=== PATIENT | female | born 1965 | race Caucasian/White ===

== ENCOUNTER → 2017-08-25 14:39 | Outpatient (CLI) | payer OTHER, SELFPAY ==
--- NOTE | 2017-08-25 | DI.MG.S_ITS ---
UNILATERAL LEFT DIGITAL DIAGNOSTIC MAMMOGRAM 3D/2D WITH ADDITIONAL VIEWS: 08/25/2017 CLINICAL: Additional evaluation requested from prior study. Comparison is made to exams dated: 07/30/2017 mammogram, 09/12/2014 mammogram, and 07/07/2013 mammogram - [facility]. The tissue of the left breast is extremely dense, which lowers the sensitivity of mammography. There are grouped coarse dystrophic heterogeneous calcifications in the left breast at 6 o'clock middle depth. This correlates with prior surgery. No other significant masses or calcifications are seen in the breast. IMPRESSION: INCOMPLETE: NEEDS ADDITIONAL IMAGING EVALUATION The grouped coarse dystrophic heterogeneous calcifications in the left breast are consistent with fat necrosis and are benign. Ultrasound of the previously described prominent bilateral axillary lymph nodes is recommended. This exam was interpreted at Station ID: [id number]. NOTE: For mammograms, a report in lay terms will be sent to the patient. Approximately 15% of breast malignancies will not be visualized mammographically. In the management of a palpable breast mass, a negative mammogram must not discourage biopsy of a clinically suspicious lesion. Electronically Signed By: Sarbjit ellington/:08/25/2017 15:48:37 letter sent: Need Ultrasound ACR BI-RADS Category 0: Incomplete 3340F
--- NOTE | 2017-08-25 | DI.US.S_ITS ---
ULTRASOUND OF RIGHT AXILLA: 08/25/2017 CLINICAL: Prominent lymph nodes. Comparison is made to exams dated: 07/30/2017 mammogram, 09/12/2014 mammogram, and 07/07/2013 mammogram - [facility]. Real-time ultrasound of the right axilla was performed on the area of interest. There are benign various size oval lymph nodes in the right axilla measuring up to 0.6 cm in short axis. No abnormal cortical thickening. These oval lymph nodes are of mixed echogenicity with fatty hilum. These correlate with mammography findings. Color flow imaging demonstrates that there is no increase in vascularity. IMPRESSION: BENIGN There is no sonographic evidence of malignancy. The various size oval lymph nodes are consistent with normal lymph nodes. A 1 year screening mammogram is recommended. This exam was interpreted at Station ID: [id number]. Electronically Signed By: Sarbjit Rice M.D. ddp/:08/25/2017 16:15:36 letter sent: Normal Exam Ultrasound BI-RADS: 2 Benign
--- NOTE | 2017-08-25 | DI.US.S_ITS ---
ULTRASOUND OF LEFT AXILLA: 08/25/2017 CLINICAL: Enlarged lymph nodes. Comparison is made to exams dated: 08/25/2017 mammogram, 07/30/2017 mammogram, and 09/12/2014 mammogram - [facility]. Color flow and real-time ultrasound of the left axilla were performed on the areas of interest. There are benign various size oval axillary nodes in the left axillary tail which measure up to 0.6 cm in short axis. These oval axillary nodes are of mixed echogenicity with fatty hilum. These correlate with mammography findings. Color flow imaging demonstrates that there is no increase in vascularity. IMPRESSION: BENIGN There is no sonographic evidence of malignancy. The various size oval subcentimeter axillary nodes are consistent with normal lymph nodes. A 1 year screening mammogram is recommended. This exam was interpreted at Station ID: [id number]. Electronically Signed By: Sarbjit Rice M.D. ddp/:08/25/2017 16:13:43 letter sent: Normal Exam Ultrasound BI-RADS: 2 Benign
== END ==
PROVIDERS: Family Provider Physician Assistant; Visit Provider Physician Assistant
DX: R92.2 Inconclusive mammogram (principal); R59.0 Localized enlarged lymph nodes
CPT/HCPCS: 76882; 77065; G0279

== ENCOUNTER → 2019-01-18 11:57 | Outpatient (CLI) | payer OTHER, SELFPAY ==
--- NOTE | 2019-01-18 12:00 | DI.US.S_ITS ---
PROCEDURE: US PELVIC COMPLETE INDICATIONS: MIRENA STRINGS LOST, VAGINAL BLEEDING TECHNIQUE: Real-time scanning was performed of the pelvic organs, with image documentation. Additional endovaginal scanning was necessary due to incomplete visualization of the adnexal and endometrial structures by transabdominal scanning. COMPARISON: None. FINDINGS: Transabdominal scanning: Limited scanning through the kidneys shows no hydronephrosis. No pathologic free abdominal or pelvic fluid. Endovaginal scanning: Uterus: Uterus is normal in size at 11.0 x 4.7 x 7.8 cm. The endometrium measures 5.1 mm in combined thickness. Intrauterine device in expected position. Ovaries: Ovaries normal in size measuring 2.5 x 1.2 x 1.2 cm on the right and 3.6 x 2.5 x 2.7 cm the left. Mildly complex cyst with wall irregularity and septation associated with the left ovary measured 2.9 x 2.3 x 2.3 cm. IMPRESSION: 1. Complex left ovarian cyst with septation and wall irregularity. Followup pelvic ultrasound recommended in 6-12 weeks to assess for temporal resolution. Dictated by: Blaine Almanzar [facility] Interpreted: Branden Walsh MD on 01/18/2019 at 14:04 Approved by: Branden Walsh M.D. on 01/18/2019 at 16:28
== END ==
PROVIDERS: Family Provider Physician Assistant; PCP Physician Assistant; Visit Provider Nurse Practitioner Family
DX: T83.32XA Displacement of intrauterine contraceptive device, initial encounter (principal); N93.9 Abnormal uterine and vaginal bleeding, unspecified; N83.292 Other ovarian cyst, left side
CPT/HCPCS: 76830; 76856

== ENCOUNTER 2019-02-16 10:00 | Emergency (ER) | payer OTHER, SELFPAY ==
[2019-02-16 10:10] VITALS: BP 129/82; PULSE 66; RESP 16; TEMP 36.8; O2SAT 97; BMI 29.8
--- NOTE | 2019-02-16 10:18 | DI.RAD.S_ITS ---
PROCEDURE: XR RIBS LT MIN 3V W CXR1V INDICATIONS: fall TECHNIQUE: 2 views of the left ribs were acquired, along with a single view chest. COMPARISON: None. FINDINGS: Surgical changes and devices: None. Bones and chest wall: No fractures or dislocations. No suspicious bony lesions. Overlying soft tissues appear unremarkable. Lungs and pleura: No pleural effusions or pneumothorax. Lungs appear clear. Mediastinum: Mediastinal contours appear normal. Heart size is normal. IMPRESSION: No displaced left rib fracture. Dictated by: Juan Miguel Lomax M.D. on 02/16/2019 at 10:48 Approved by: Juan Miguel Lomax M.D. on 02/16/2019 at 10:50
--- NOTE | 2019-02-16 10:33 | ED.GENADULT ---
HPI - General Adult General Chief complaint: Extremity Injury, Upper Stated complaint: fell yesterday. sore ribs and hard time breathing Time Seen by Provider: 02/16/19 10:16 Source: patient and family Mode of arrival: Family Vehicle Limitations: no limitations History of Present Illness HPI narrative: 53-year-old female here for evaluation of left flank/left lower rib pain. Patient states yesterday she was out walking her dog. States she found a ball impacted up in throat for dog and the dog pulled her. She states she fell and landed on her left side. Since then has had pain and some shortness of breath. Tenderness to palpation on the left lower ribs. Related Data Home Medications Medication Instructions Recorded Confirmed acetaminophen [Tylenol Extra 1,000 mg PO PRN PRN #0 06/17/17 02/03/19 Strength] ranitidine HCl 150 mg tablet 150 mg PO DAILY 05/19/18 02/03/19 Previous Rx's Medication Instructions Recorded meloxicam 15 mg tablet 15 mg PO QDAY #90 tab 06/28/18 valacyclovir 1 gram tablet 1,000 mg PO TID #60 tab 07/26/18 fluoxetine 20 mg capsule 20 mg PO DAILY #90 cap 11/29/18 hydrochlorothiazide 25 mg tablet See Rx Instructions .ROUTE 12/26/18 .COMPLEX #30 tab metoprolol succinate 25 mg 25 mg PO QDAY #90 tab 01/04/19 tablet,extended release 24 hr simvastatin 20 mg tablet 20 mg PO HS #90 tab 01/13/19 acetaminophen-codeine 1 tab PO Q4-6H PRN #10 tab 02/16/19 [Tylenol-Codeine #3] Allergies Allergy/AdvReac Type Severity Reaction Status Date / Time No Known Drug Allergies Allergy Verified 02/16/19 10:24 Review of Systems Constitutional Constitutional: Denies fever(s) Cardiovascular Cardiovascular: Denies chest pain Respiratory Respiratory: Reports pain on inspiration Gastrointestinal Gastrointestinal: Denies abdominal pain, Denies nausea and Denies vomiting Musculoskeletal Musculoskeletal: Denies back pain, Denies myalgias and Denies arthralgias Integumentary/Breasts Skin/Breast: Denies rash Neurologic Neurologic: Denies behavioral changes Psychiatric Psychiatric: Denies behavioral changes Hematologic/Lymphatic Hematologic/Lymphatic: Denies easy bleeding and Denies easy bruising Patient History Medical History Depression with anxiety (Resolved) Essential hypertension (Inactive 03/19/16) History of Graves' disease (Inactive) Hyperlipidemia (Inactive) Surgical History (Updated 08/03/17 @ 05:17 by Conversion Provider) History of lumpectomy Status post breast reduction Status post tubal ligation Family History (Updated 01/07/15 @ 00:00 by Conversion Provider) Brother Age: 58 Bipolar 1 disorder Schizophrenia Mother Age: 83 Hypertension Sister Age: 57 Bipolar 1 disorder Social History Smoking Status: Former smoker Tobacco: How many years used: 34 second hand exposure: No alcohol intake: current (rarely) substance use type: does not use alcohol intake frequency: 0-2 drinks per day Substance Use Type: does not use Exam Initial Vital Signs Initial Vital Signs: Vital Signs Temperature 98.3 F 02/16/19 10:10 Pulse Rate 66 02/16/19 10:10 Respiratory Rate 16 02/16/19 10:10 Blood Pressure 129/82 02/16/19 10:10 Pulse Oximetry 97 02/16/19 10:10 Const General: cooperative and comfortable Orientation: alert, awake and oriented x3 HENMT Head: normal to inspection and normocephalic Chest Chest: No crepitus and tenderness (Left lower chest, left flank over the ribs) Resp Effort & Inspection: normal respiratory effort Auscultation: clear to auscultation bilaterally Back/Spine/Pelvis Thoracic/Lumbar Spine: No thoracic spinal tenderness and No lumbar spinal tenderness Skin Lesions: no lesions Rashes: no rashes Neuro General: alert, awake and oriented x3 Cognition: normal cognition Speech: speech normal Extrem General: normal to inspection and capillary refill normal Psych Appearance: grossly normal and well kempt Course Orders Ordered: ED Orders 02/16/19 10:18 XR ribs LT min 3V w CXR1V Stat Vital Signs Vital signs: Vital Signs - 8 hr 02/16/19 10:10 Temperature 98.3 F Pulse Rate 66 Respiratory Rate 16 Blood Pressure 129/82 Pulse Oximetry 97 Medical Decision Making Imaging Data rib xray: Radiologist's impression: [address] [address] XRay Report Signed Patient: Eva Lee [facility]#: [id number] : 1965Acct:[id number] Age/Sex: 53 / FDate of Service: 02/16/19 Loc: ED Accession Number: [id number] Procedure: XR ribs LT min 3V w CXR1V Ordering Provider: Leonid Sneed D.O. PROCEDURE: XR RIBS LT MIN 3V W CXR1V INDICATIONS: fall TECHNIQUE: 2 views of the left ribs were acquired, along with a single view chest. COMPARISON: None. FINDINGS: Surgical changes and devices: None. Bones and chest wall: No fractures or dislocations. No suspicious bony lesions. Overlying soft tissues appear unremarkable. Lungs and pleura: No pleural effusions or pneumothorax. Lungs appear clear. Mediastinum: Mediastinal contours appear normal. Heart size is normal. IMPRESSION: No displaced left rib fracture. Dictated by: Juan Miguel Lomax M.D. on 02/16/2019 at 10:48 Approved by: Juan Miguel Lomax M.D. on 02/16/2019 at 10:50 MDM Narrative Medical decision making narrative: No displaced rib fractures seen on the x-ray. Lung on the left unremarkable. Patient is not tachypneic. Not febrile. Nontoxic appearing. I did discuss that there were no displaced rib fractures with the patient. I also discussed that there could potentially be a small fracture in the rib that we cannot see on the x-ray. We discussed return precautions to include fevers and productive cough and shortness of breath. We did discuss pain control in the importance of taking deep breaths. Patient expressed understanding and agreement with plan. Discharge Plan Departure Patient Disposition: Home Clinical Impression: Rib pain on left side Instructions: DI for Rib Fracture Activity Restrictions/Additional Instructions: Like we discussed there were no fractures noted on the x-rays. The discharge instructions you were given are for rib fractures because the information within this packet is helpful for both fractures and also bruised ribs. Take the medication as directed. Return to the emergency department for any fevers or shortness of breath. Contact her primary provider for follow-up. Prescriptions: New acetaminophen-codeine [Tylenol-Codeine #3] 300-30 mg tablet 1 tab PO Q4-6H PRN (Reason: pain) Qty: 10 RF: 0 No Action ranitidine HCl [Zantac] 150 mg tablet 150 mg PO DAILY RF: 0 acetaminophen [Tylenol Extra Strength] 500 MG tablet 1,000 mg PO PRN PRNQty: 0 RF: 0 meloxicam 15 mg tablet 15 mg PO QDAY Qty: 90 RF: 3 fluoxetine 20 mg capsule 20 mg PO DAILY Qty: 90 RF: 3 hydrochlorothiazide 25 mg tablet See Rx Instructions .ROUTE .COMPLEX Qty: 30 RF: 0 metoprolol succinate [Toprol XL] 25 mg tablet extended release 24 hr 25 mg PO QDAY Qty: 90 RF: 1 simvastatin 20 mg tablet 20 mg PO HS Qty: 90 RF: 0 valacyclovir 1 gram tablet 1,000 mg PO TID Qty: 60 RF: 3 Referrals: Mica Chang PA-C [Primary Care Provider] -
--- NOTE | 2019-02-16 11:32 | PC.NURSE ---
Pain is to left ribs
[2019-02-16 11:33] VITALS: PULSE 72; RESP 16; O2SAT 99
== END 2019-02-16 11:34 | disposition home or self-care (01) ==
PROVIDERS: Emergency Provider Emergency Medicine; Family Provider Physician Assistant; PCP Physician Assistant
DX: R07.81 Pleurodynia (principal); W01.0XXA Fall on same level from slipping, tripping and stumbling without subsequent striking against object, initial encounter; Y93.K1 Activity, walking an animal
CPT/HCPCS: 71101; 99282; 99283

== ENCOUNTER → 2019-03-19 16:11 | Outpatient (CLI) | payer OTHER, SELFPAY ==
[2019-03-19 17:07] LABS: Influenza A - CEPHEID Flu A NEGATIVE (NEGATIVE); Influenza B - CEPHEID Flu B NEGATIVE (NEGATIVE)
== END ==
PROVIDERS: Family Provider Physician Assistant; PCP Physician Assistant; Visit Provider Nurse Practitioner
DX: R68.89 Other general symptoms and signs (principal)
CPT/HCPCS: 87502

== ENCOUNTER → 2019-04-26 07:27 | Outpatient (CLI) | payer OTHER, SELFPAY ==
--- NOTE | 2019-04-26 07:29 | DI.US.S_ITS ---
PROCEDURE: US PELVIC COMPLETE INDICATIONS: COMPLEX OVARIAN CYST TECHNIQUE: Real-time scanning was performed of the pelvic organs, with image documentation. Additional endovaginal scanning was necessary due to incomplete visualization of the adnexal and endometrial structures by transabdominal scanning. COMPARISON: [facility], , US PELVIC COMPLETE, 01/18/2019, 12:12. FINDINGS: Transabdominal scanning: Limited scanning through the kidneys shows no hydronephrosis. No pathologic free abdominal or pelvic fluid. Endovaginal scanning: Uterus: Uterus is normal in size at 4.6 x 6.5 x 9.4 cm, anteverted. The endometrium measures 12 mm in combined thickness, mildly heterogeneous without identifiable mass or abnormal fluid collection. A previously present IUD from 01/18/19 is no longer visualized. Ovaries: The right ovary appears normal measuring up to 2.7 cm. The left ovary measures up to 2.5 cm and a previously present 2.9 cm maximal dimension mildly complex left ovarian cyst is resolving now measuring only 5 x 5 x 10 mm. IMPRESSION: Involuting left ovarian cyst, no new cyst or solid mass lesion has developed. Note is made of mild heterogeneity of the endometrial lining in this patient with prior IUD in place. An IUD is not currently visualized. No endometrial mass or abnormal fluid collection is suspected. Dictated by: Zander Garcia M.D. on 04/26/2019 at 9:56 Approved by: Zander Garcia M.D. on 04/26/2019 at 10:01
[2019-04-26 09:10] LABS: Alanine Aminotransferase 29 IU/L (<35); Albumin 4.6 g/dL (3.5-5.0); Albumin Globulin Ratio 1.4 (1.0-2.8); Alkaline Phosphatase 57 U/L (38-126); Aspartate Aminotransferase 33 IU/L (14-36); Bilirubin Total 0.5 mg/dL (0.2-1.3); Blood Urea Nitrogen 16 mg/dL (7-17); Calcium 10.1 mg/dL (8.4-10.2); Carbon Dioxide 33 mmol/L (22-32); Chloride 100 mmol/L (98-107); Cholesterol 173 mg/dL (140-199); Estimated Glomerular Filt Rate > 60.0 mL/min (>60); Globulin 3.3 g/dL (1.7-4.1); Glucose 94 mg/dL (70-100); HDL Cholesterol 41 mg/dL (40-60); HEMOLYSIS < 15 (0-50); LDL Cholesterol Calculated 108 mg/dL (<100); Potassium 3.5 mmol/L (3.4-5.1); Sodium 142 mmol/L (137-145); Total Protein 7.9 g/dL (6.3-8.2); Triglycerides 122 mg/dL (35-150)
[2019-04-26 09:21] LABS: Free T3, Triiodothyronine Free 3.62 pg/mL (2.77-5.27); Free T4, Direct Thyroxine 1.22 ng/dL (0.78-2.19)
[2019-04-26 09:35] LABS: Thyroid Stimulating Hormone 0.79 uIU/mL (0.47-4.68)
[2019-04-26 11:00] LABS: Microalbumi Creatinin Ratio Ur 22.2 ug/mg CR (<30); Microalbumin Urine Random < 0.6 mg/dL (0-1.6)
== END ==
PROVIDERS: PCP Physician Assistant; Visit Provider Physician Assistant
DX: N83.292 Other ovarian cyst, left side (principal); E78.5 Hyperlipidemia, unspecified; I10 Essential (primary) hypertension; R23.2 Flushing; R61 Generalized hyperhidrosis; Z86.39 Personal history of other endocrine, nutritional and metabolic disease
CPT/HCPCS: 36415; 76830; 76856; 80053; 80061; 82043; 82570; 84439; 84443; 84481

== ENCOUNTER → 2021-12-03 13:41 | Outpatient (CLI) | payer OTHER, SELFPAY ==
--- NOTE | 2021-12-03 13:43 | DI.US.S_ITS ---
LIMITED ULTRASOUND OF RIGHT BREAST: 12/03/2021 CLINICAL: Palpable right breast lump. Comparison is made to exams dated: 12/03/2021 mammogram - [facility], 12/28/2019 mammogram - [facility], 07/30/2017 mammogram, and 09/12/2014 mammogram - [facility]. Color flow and real-time ultrasound of the right breast 8 o'clock region were performed. Elizondo scale images of the real-time examination were reviewed. There is a 2.6 cm irregular mass with a spiculated margin in the right breast at 8 o'clock middle depth 10 cm from the nipple. This irregular mass is hypoechoic with posterior acoustic shadowing. Color flow imaging demonstrates that there is increased vascularity. IMPRESSION: HIGHLY SUGGESTIVE OF MALIGNANCY The 2.6 cm irregular mass in the right breast is highly suggestive of malignancy. An ultrasound guided biopsy is recommended. This exam was interpreted at Station ID: [id number]. Electronically Signed By: John Barrera M.D., jr/nubia:12/03/2021 15:30:04 letter sent: Biopsy Required Ultrasound BI-RADS: 5 Highly suggestive of malignancy
--- NOTE | 2021-12-03 13:43 | DI.MG.S_ITS ---
BILATERAL DIGITAL DIAGNOSTIC MAMMOGRAM 3D/2D: 12/03/2021 CLINICAL: Palpable right breast lump. Due for Bilateral routine. Comparison is made to exams dated: 12/28/2019 mammogram - [facility], 07/30/2017 mammogram, and 09/12/2014 mammogram - [facility]. Both breasts are extremely dense, which lowers the sensitivity of mammography (category d />75% glandular tissue). There is a 2.6 cm irregular high density mass with a spiculated and indistinct margin and grouped fine calcifications in the right breast at 8 o'clock middle depth 10 cm from the nipple. There is architectural distortion associated with the mass. No other significant masses, calcifications, or other findings are seen in either breast. IMPRESSION: INCOMPLETE: NEEDS ADDITIONAL IMAGING EVALUATION The 2.6 cm irregular high density mass in the right breast is indeterminate. An ultrasound is recommended. Based on the Tyrer Cuzick model (a risk assessment model) the patient's lifetime risk is 13.5% and her 10 year risk is 5.0%. According to the ACR, ACS, and NCCN guidelines, an annual breast MRI exam along with mammogram is recommended if the patient's lifetime risk is 20% or greater. This exam was interpreted at Station ID: [id number]. NOTE: For mammograms, a report in lay terms will be sent to the patient. Approximately 15% of breast malignancies will not be visualized mammographically. In the management of a palpable breast mass, a negative mammogram must not discourage biopsy of a clinically suspicious lesion. Electronically Signed By: John Barrera M.D., jr/nubia:12/03/2021 15:28:47 ACR BI-RADS Category 0: Incomplete 3340F
== END ==
PROVIDERS: PCP Family Medicine; Referring Provider Family Medicine; Visit Provider Family Medicine
DX: N63.13 Unspecified lump in the right breast, lower outer quadrant (principal); R92.8 Other abnormal and inconclusive findings on diagnostic imaging of breast
CPT/HCPCS: 76642; 77066; G0279

== ENCOUNTER → 2021-12-12 14:08 | Outpatient (CLI) | payer OTHER, SELFPAY ==
--- NOTE | 2021-12-12 | PATH_ITS ---
[facility] Accession Number: [id number] No. of containers..01 Tissue . 01 Material submitted: . breast - RIGHT BREAST MASS 8:00 10CM FROM NIPPLE . 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 Greatest linear extent: 9 mm. Ductal carcinoma in situ: No definite DCIS identified. Microcalcifications: Present, associated with carcinoma and benign glandular elements. Lymphovascular invasion: Not identified. . CAP BREAST BIOMARKER REPORTING TEMPLATE: . Estrogen Receptor (ER) Status: Positive, 90%. Average intensity of staining: Strong. Primary antibody: SP1 Progesterone Receptor (PgR) Status: Positive, 50%. Average intensity of staining: Intermediate. Primary antibody: 1E2 HER2 (by immunohistochemistry): Equivocal (2+). Primary antibody: 4B5 HER2 (ERBB2) (by in situ hybridization): Pending, results will be issued in an addendum. . Cold Ischemia and Fixation Times: Meets requirements in the latest version of the ASCO/CAP guidelines. Testing performed on Block Number: . TECHNICAL NOTE: The scoring criteria for breast biomarkers by immunohistochemistry is based on the current ASCO/CAP guidelines (Demetrius et al, Arch Pathol Lab Med 2010: 134(6): 907-922 / Malcolm MAN et al, Arch Pathol Lab Med 2014: 138(2):241-256). Deparaffinized sections of formalin fixed tissue (along with appropriate positive controls) are incubated with the above antibody(s). Using the automated Hilbert stainer, tissue is incubated with the designated antibody* which is then localized by a non-biotin, dual polymer detection system. The external controls are reviewed for appropriate reactivity and found to be adequate. Results on the target cell population are indicated above. These tests have not been validated on decalcified tissue. [facility] 12/16/2021 1523 Local . 01 Comment: As part of routine quality control coordinator, Dr. Hernandez has reviewed this case and agrees with the diagnosis of ductal carcinoma and equivocal (2+) HER2 immunoreactivity. Given equivocal HER2 studies by immunohistochemical technique, HER2 FISH will be performed and results issued in an addendum. . The finding of carcinoma was discussed between Dr. Giron and Dr. Villanueva on 12/16/2021. . 01 Electronically signed: . Julián Villanueva MD, PhD, Pathologist NPI- [id number] . 01 Gross description: . Received in formalin, labeled with the patient's name and right breast 8 o'clock, and consists of two yellow-white needle core biopsies ranging in length from 0.9 cm to 2.0 cm and averaging 0.2 cm in diameter. The specimen is inked blue and submitted entirely in cassette A1. The specimen was removed on 12/12/2021 at 15:13. Time in formalin unknown, cold ischemic time unknown. Total fixation time approximately 20 hours. ([id number]) /R 12/13/2021 1108 Local . 01 Microscopic: . Sections are of breast parenchyma expanded by a proliferation of epithelioid cells with a nested growth pattern. Scattered linear arrangements are identified. To exclude the possibility of a lobular carcinoma component, an e-cadherin immunohistochemical stain* is performed, which shows diffuse immunoreactivity, consistent with ductal carcinoma, and excluding lobular carcinoma. The carcinoma cells are positive for estrogen receptor (90%, strong) and progesterone receptor (50%, intermediate) immunoreactivity. A HER2 immunohistochemical stain is equivocal (2+) for HER2 immunoreactivity. Control stains show appropriate reactivity. . * This test was developed and its performance characteristics determined by [employer]. It has not been cleared or approved by the U.S. Food and Drug Administration. The FDA has determined that such clearance or approval is not necessary. This test is used for clinical purposes. It should not be regarded as investigational or for research. . 01 Pathologist provided ICD-10: C50.911 . 01 CPT . 520883, D91675, 230255, 046825, 055964 Specimen Comment: A courtesy copy of this report has been sent to [phone] Performed at: 01 [facility] [address] [place] [address] [address] [facility] [place] [facility], [place], [place] [id number] MD Sarbjit Mendes MD Phone: [phone]
--- NOTE | 2021-12-12 | DI.MG.S_ITS ---
UNILATERAL RIGHT DIGITAL DIAGNOSTIC MAMMOGRAM 3D/2D POST-PROCEDURE IMAGING FOR MARKER PLACEMENT: 12/12/2021 CLINICAL: Right post clip. Comparison is made to exams dated: 12/12/2021 ultrasound biopsy, 12/03/2021 ultrasound, and 12/03/2021 mammogram - [facility]. The right breast is extremely dense, which lowers the sensitivity of mammography (category d />75% glandular tissue). There is a marker clip in the right breast at 8 o'clock middle depth 10 cm from the nipple. This marker clip placement is migrated from the biopsy site approximately 1 cm inferior to the geometric center of biopsy site. IMPRESSION: POST PROCEDURE MAMMOGRAM FOR MARKER PLACEMENT Marker clip placement in the right breast middle depth with biopsy marker visualized approximately 1 cm inferior to the biopsy site. Based on the Tyrer Cuzick model (a risk assessment model) the patient's lifetime risk is 13.5% and her 10 year risk is 5.0%. According to the ACR, ACS, and NCCN guidelines, an annual breast MRI exam along with mammogram is recommended if the patient's lifetime risk is 20% or greater. This exam was interpreted at Station ID: [id number]. NOTE: For mammograms, a report in lay terms will be sent to the patient. Approximately 15% of breast malignancies will not be visualized mammographically. In the management of a palpable breast mass, a negative mammogram must not discourage biopsy of a clinically suspicious lesion. Electronically Signed By: Dwain Robb M.D. aty/:12/12/2021 21:51:04 ACR BI-RADS Category Post-procedure mammogram for marker placement
--- NOTE | 2021-12-12 14:09 | DI.US.S_ITS ---
ULTRASOUND GUIDED BIOPSY RIGHT BREAST USING VACUUM DEVICE WITH MARKING DEVICE INSERTED AND POST MAMMOGRAPHIC IMAGIN12/12/2021 CLINICAL: Right breast mass. PATIENT CONSENT: Risks (minor bleeding, infection, vasovagal reaction and repeat procedure), benefits and alternatives were explained to the patient and written informed consent was obtained. Correlation is made to exams dated: 12/03/2021 ultrasound, 12/03/2021 mammogram - [facility], 12/28/2019 mammogram - [facility], 08/25/2017 ultrasound, 07/30/2017 mammogram, and 09/12/2014 mammogram - [facility]. An ultrasound guided biopsy using real-time ultrasound was performed for the indistinct irregular shaped mass located in the right breast at 8 o'clock middle depth 10 cm from the nipple. This was described on the previous mammography and ultrasound reports. The skin was prepped in the usual manner. Local anesthetic was administered to the access site. A skin mohan was made in the breast. The abnormality was approached from the lateral aspect. A 13 gauge biopsy needle was placed adjacent to the abnormality under ultrasound guidance. Once the needle was documented to be in the correct location, six specimens were obtained using the Mammotome biopsy system. A clip was inserted into the biopsy cavity. A sterile dressing was applied to the access site. Post procedure mammographic imaging demonstrates the location device 1cm inferior from the geometric center of the targeted area. The specimens were sent to the laboratory for pathological analysis. IMPRESSION: ULTRASOUND GUIDED BIOPSY MALIGNANT Ultrasound guided biopsy of the mass in the right breast at 8 o'clock middle depth 10 cm from the nipple was successful. Pathology indicates malignant invasive ductal carcinoma (ID). Pathology results are concordant with imaging findings. This exam was interpreted at Station ID: [id number]. Dwain nelson,acr/nubia:12/19/2021 12:47:43
== END ==
PROVIDERS: PCP Family Medicine; Referring Provider Family Medicine; Visit Provider Family Medicine
DX: N63.10 Unspecified lump in the right breast, unspecified quadrant (principal)
CPT/HCPCS: 19083; 77065

== ENCOUNTER → 2022-01-05 09:07 | Outpatient (CLI) | payer OTHER, SELFPAY ==
[2022-01-05 10:50] LABS: COVID19 -Nasal RAPID Negative (Negative)
== END ==
PROVIDERS: PCP Family Medicine; Visit Provider Surgery
DX: Z20.822 Contact with and (suspected) exposure to COVID-19 (principal); Z01.812 Encounter for preprocedural laboratory examination
CPT/HCPCS: 87635; C9803

== ENCOUNTER → 2022-01-06 08:14 | Outpatient (CLI) | payer OTHER, SELFPAY | PROVIDERS: PCP Family Medicine; Referring Provider Surgery; Visit Provider Surgery | DX: C50.911 Malignant neoplasm of unspecified site of right female breast (principal); Z17.0 Estrogen receptor positive status [ER+] ==

== ENCOUNTER 2022-01-06 08:15 | Day surgery (SDC) | payer OTHER, SELFPAY ==
[2022-01-05 07:36] VITALS: BMI 33.5
[2022-01-06] VITALS (9 sets, daily range): BP systolic 97–131; BP diastolic 58–80; PULSE 60–75; RESP 11–27; TEMP 36.1–36.7; O2SAT 92–97; BMI 33.5
--- NOTE | 2022-01-06 | PATH_ITS ---
[facility] Accession Number: [id number] . 01 Material submitted: . PART A: lymph node - RIGHT SENTINEL NODE PART B: breast - RIGHT BREAST . 01 Diagnosis: A. Right [place] Lymph Node, Excision: Isolated tumor cells involving one out of one lymph node. Extranodal extension: Not present. . B. Right Breast, Excision: Invasive (ductal) carcinoma, grade 3 of 3 ([place] combined histologic grade, total score 8/9) with the following features: 1. Tumor size (invasive component): 3.5 cm, by gross measurement. 2. Nuclear pleomorphism: High. (3/3) 3. Mitotic rate: Intermediate. (2/3) 4. Tubular differentiation: Little or none. (3/3) 5. Ductal carcinoma in situ: - Present, with the following features: i. Nuclear grade: Moderate to high, with apocrine features. ii. Necrosis: Present, central. - Extent: Present on more than one slide, corresponding to to tissue slices 3, 5, 6, 7, 8, and 11, spanning approximately 40 mm. 6. Calcifications: Present, in association with invasive carcinoma, ductal carcinoma in situ, and benign breast tissue. 7. Lymphatic invasion: Focally present. 8. Resection margins: - Invasive carcinoma: Negative, with the closest distance to the following margins: i. Lateral margin: 1.8 mm (block B3). ii. All other margins: 2 mm or more. - Ductal carcinoma in situ: Positive (touching ink) detailed as follows: i. Anterior: Positive (B5 and B10). ii. Lateral margin: 1.8 mm (B3). iii: Superior margin: 1.8 mm (B13). iiii: All other margins: 2 mm or more. 9. Prognostic markers: - Performed on prior biopsy: i. Estrogen receptor status (per report): Positive. ii. Progesterone receptor status (per report): Positive. iii. HER2 status (per report): Negative for Her2 gene amplification by FISH studies. - Repeated on current excision specimen, and the results are: Equivocal for protein overexpression by immunohistochemistry (2+); FISH studies pending and the results will be reported in an addendum. 10. Regional lymph nodes (see part A above): - One sentinel lymph node positive for isolated tumor cells only (part A). 11. Additional findings: - Atypical lobular hyperplasia/lobular carcinoma in situ is present. - Background with microcystic duct dilatation, columnar cell change/columnar cell hyperplasia, apocrine metaplasia. - Biopsy site changes are present. 12. Pathologic stage: pT2 pN0(i+,sn). MRV 01/14/2022 1131 Local . 01 Electronically signed: . Genny Laura MD, Pathologist NPI- [id number] . 01 Gross description: . A. The specimen is received in formalin labeled with the patient's name and right sentinel node, and consists of two soft tissue fragments measuring 1.8 x 1.2 x 0.8 cm and 0.5 x 0.4 x 0.2 cm, respectively. The largest fragment is palpated to reveal a blue lymph node candidate measuring 1.2 cm in greatest dimension, and the second soft tissue fragment is palpated to reveal no additional lymph nodes. The single lymph node candidate is serially sectioned and submitted entirely in cassettes A1-A2. . The specimen was removed on 01/06/2022 at 1400, time in formalin no provided, cold ischemic time cannot be calculated, and total fixation time is approximately 32 hours. . B. Received: In formalin labeled with right breast tissue, short=superior, long=lateral. Specimen: Right lumpectomy received previously inked with marking sutures and clip. Weight: 64 grams. Measurement: 5.0 cm anterior to posterior, 8.6 cm medial to lateral, 3.2 cm superior to inferior. Skin ellipse: Absent. Wire: Absent. Margins: Inked by surgeon as follows: Anterior green, inferior blue, lateral orange, medial yellow, posterior black, superior red. Two sutures designate short superior and long lateral, and a gross ratchet clamp also designates lateral. Inking is reinforced. Sliced: Lateral to medial into 13 slices. Lesions: One lesion. Lesion 1: Description: Ill-defined pale firm mass with a cylindrical biopsy clip in slice 6. Size: 3.5 x 1.9 x 2.2 cm. Slices involved: 3-7. Biopsy site: Present, cylindrical clip, slice 6, associated hemorrhage within slice 6-9. Distance to margins: Less than 0.1 cm from the anterior margin, 0.1 cm from the superior margin, 0.6 cm from the inferior margin, 1.1 cm from the posterior margin, 1.4 cm from the lateral margin, and greater than 3.0 cm from the medial margin. Other: The remaining cut surfaces consist of yellow to white fibroadipose tissue with fibrous tissue occupying approximately 50% of the cut surface. No additional discrete masses or lesions are grossly identified. Fixation time: The specimen was removed on 01/06/2022 at 1445, time in formalin unknown, cold ischemic time cannot be calculated, and total fixation time is approximately 31 hours. Global Professional sections are submitted as follows: B1: Rep slice 1, lateral margin perpendicular. B2: Rep slice 2, no identifiable tumor, lateral and inferior margins. B3: Rep slice 3, mass to include superior, anterior, and inferior margins. B4: Rep slice 5, to include superior and anterior margins. B5-B8: Composite slice 6 to include anterior, posterior, superior, and inferior margins. B9-B10: Composite rep slice 7 to include superior and anterior margins. B11: Rep slice 8 to include superior, anterior, and inferior margins. B12: Rep slice 10 to include posterior and inferior margins. B13-B14: Entire slice 11 composite. B15: Rep 13, medial margin perpendicular (biopsy site cassette B5). ([id number]) /MRV 01/07/2022 1658 Local . 01 Microscopic: . RUBIO immunostain is performed on block A2 in order to evaluate the atypical cells within the lymph node, with appropriately staining external controls. RUBIO is positive within the atypical cell cluster (about 20 cells, less than 0.2 mm), in support of the diagnosis of isolated tumor cells. . Predictive marker immunohistochemical studies are performed on block B4 of this excision specimen, with the invasive carcinoma showing the following results: . Her2 (4B5): Equivocal for protein overexpression by immunohistochemistry (2+); FISH studies pending and results will be reported in an addendum. . The scoring criteria for breast biomarkers by immunohistochemistry is based on the ASCO/CAP guidelines (Malcolm AC et al, J Clin Oncol: 2017Oct 12;36(20):4895-6010 and Demetrius COSTELLO et al, Arch Pathol Lab Med: 2009;134(6):907-22). Deparaffinized sections of formalin fixed tissue (along with appropriate positive controls) are incubated with the above antibody(s). Using the automated Odum stainer, tissue is incubated with the designated antibody which is then localized by a non-biotin, dual polymer detection system. The external controls are reviewed for appropriate reactivity and found to be adequate. Results on the target cell population are indicated above. These tests have not been validated on decalcified tissue. This test was developed and its performance characteristics determined by [employer]. It has not been cleared or approved by the U.S. Food and Drug Administration. The FDA has determined that such clearance or approval is not necessary. This test is used for clinical purposes. It should not be regarded as investigational or for research. . 01 Pathologist provided ICD-10: C50.911 . 01 CPT . 856919, 219270, D61323, 259655 Specimen Comment: A courtesy copy of this report has been sent to [phone] Performed at: 01 [facility] [address] [place] [address], [place], [place] [id number] MD Sarbjit Mendes MD Phone: [phone]
--- NOTE | 2022-01-06 08:16 | DI.NM.S_ITS ---
PROCEDURE: NM SENTINEL NODE INJECT ONLY RADIOPHARMACEUTICAL: 1.02 mCi Millipore filtered Tc-99m sulfur colloid. INDICATIONS: Breast cancer right breast COMPARISON: None. PROCEDURE: The area around the nipple was prepped and draped in a sterile fashion. Tc-99m sulfur colloid was injected intra-dermally around the outer edge of the areola in the right breast. No image was obtained. IMPRESSION: Administration of radiotracer into the right breast periareolar region for intra-operative sentinel lymph node localization. Dictated by: Branden Walsh M.D. on 01/06/2022 at 11:30 Approved by: Branden Walsh M.D. on 01/06/2022 at 11:38
--- NOTE | 2022-01-06 11:36 | SUR.PREOP ---
Updated patient regarding delay of her surgeon due to previous surgical case being more complicated that expected. V/U. No needs voiced at this time.
--- NOTE | 2022-01-06 12:37 | PM.PREOP ---
Pre-operative Note COVID-19 COVID-19 status: Negative Result date/Date tested (Pos, Neg/Pending): 01/05/22 Interval Note History & Physical reviewed/Exam performed by Physician: Yes Changes to H&P: No ASA Class (for procedural sedation): II
[2022-01-06] MEDS: CEFAZOLIN 2 GM/100 ML PREMIX 100 ML IV (13:10)
[2022-01-06] MEDS: METHYLENE BLUE 50 MG/10 ML VIAL 15 MG INJ (13:20)
[2022-01-06] MEDS: LIDOCAINE 1% 20 ML INJ (13:35)
[2022-01-06] MEDS: BUPIVACAINE 0.5% W/ EPI (PF) 30 ML VIAL INJ (13:35)
--- NOTE | 2022-01-06 13:43 | SUR.OPER ---
Supine on padded OR bed, head on pillow, arms secured on padded arm boards at <90 degrees abduction, legs uncrossed, safety belt at thigh, gel pad below heels.
[2022-01-06] MEDS: LACTATED RINGERS 1,000 ML 100 ML IV ×2 (14:33→15:10)
--- NOTE | 2022-01-06 14:36 | DI.MG.S_ITS ---
At the request of: KETAN GARCIA Procedure: MM surgical specimen RT SPECIMEN RIGHT BREAST: 01/06/2022 CLINICAL: Post lumpectomy abnormal mammogram. Correlation is made to exams dated: 12/12/2021 mammogram, 12/12/2021 ultrasound biopsy, 12/03/2021 mammogram - [facility], and 12/28/2019 mammogram - [facility]. A lumpectomy specimen was imaged for the previous biopsy site located in the right breast at 8 o'clock middle depth. IMPRESSION: SPECIMEN The imaged specimen includes a biopsy clip. This exam was interpreted at Station ID: [id number]. Dr. Romeo mensah/nubia:01/06/2022 15:15:46
--- NOTE | 2022-01-06 14:45 | SUR.OPER ---
Navigator count numbers: [id number] on node, background 123.
--- NOTE | 2022-01-06 15:03 | PM.OP.1 ---
Operative Date/Time/Diagnoses Date of procedure: 01/06/22 Time of procedure: 15:03 Pre-op diagnosis: Right breast cancer Post-op diagnosis: same Procedure & Clinicians Procedure: Right breast lumpectomy with sentinel lymph node biopsy Same procedure as scheduled: Yes Surgeon: Kwesi Young Operative Notes Procedure in detail: The patient was given preoperative antibiotic. The patient was brought to the operating room, placed on the table in the supine position, general anesthesia was induced. Arms were abducted on arm boards. 10 mL of 50% methylene blue were injected near the right areola. The right breast and axilla were prepped and draped in the usual fashion. A time-out was performed. Additional massage was performed to spread the methylene blue. The lymphoscintigraphy probe was used to identify a potential sentinel node in the right axilla. We injected local anesthetic into the skin and made a transverse right axillary incision of roughly 6 cm. We dissected down through the subcutaneous adipose tissue until we could more easily palpate the palpable node. There was a blue hot node that was resected. The signal was greater than 10 fold the background. We then turned to the right breast. We made a 10 cm incision over the palpable mass in the lateral portion of the right breast. We created a flap medial to the incision and dissected down to the chest wall. We encountered some of the old scar tissue from her prior breast reduction surgery along the medial aspect of the field. We placed a long stitch in the lateral portion of the specimen. A short superior stitch was placed. The specimen was excised completely from the breast and marked with the specimen paint kit according to the greco. The specimen was sent to Radiology for specimen mammogram. The clip was visualized in the specimen. We then irrigated both wound cavities initially with sterile saline. Local anesthetic was injected into the muscle layer of the lumpectomy site. A few bleeders were cauterized. Once the wound cavities were hemostatic we injected some local anesthetic into the dermis and closed both incisions in layers using multiple interrupted 3-0 Vicryl dermal sutures followed by a running 4-0 Monocryl subcuticular closure. Steri-Strips were applied followed by dry gauze and a breast binder. EBL: 30 mL Specimens: Right sentinel lymph node, blue and hot and right breast tissue containing the palpable mass and clip. Post-operative Condition: stable Disposition: PACU
[2022-01-06] MEDS: OXYCODONE IR 5 MG TABLET PO ×2 (15:19→16:00)
[2022-01-06] MEDS: ACETAMINOPHEN 325 MG TABLET 975 MG PO (15:23)
== END 2022-01-06 16:26 | disposition home or self-care (01) ==
PROVIDERS: PCP Family Medicine; Referring Provider Surgery; Visit Provider Surgery
PROC: (CPT 19301; principal; 2022-01-06 11:15)
DX: C50.911 Malignant neoplasm of unspecified site of right female breast (principal); Z17.0 Estrogen receptor positive status [ER+]; I10 Essential (primary) hypertension; E78.5 Hyperlipidemia, unspecified; F32.A Depression, unspecified; F41.9 Anxiety disorder, unspecified; G47.33 Obstructive sleep apnea (adult) (pediatric); C77.3 Secondary and unspecified malignant neoplasm of axilla and upper limb lymph nodes
CPT/HCPCS: 38500; 19125; 38792; 76098; A9541; J0690; J1100; J1200; J1885; J2250; J2405; J2704; J3010; Q9968

== ENCOUNTER → 2022-01-08 14:42 | Outpatient (CLI) | payer OTHER, SELFPAY ==
--- NOTE | 2022-01-08 14:44 | DI.RAD.S_ITS ---
PROCEDURE: XR LUMBAR SPINE 2-3V INDICATIONS: pain and sciatica TECHNIQUE: 3 views of the lumbar spine were acquired. COMPARISON: None. FINDINGS: Bones: 5 rrg-[id number]-iikxvta vertebrae are present. There is mild grade 1 retrolisthesis of L2 on L3 measuring 2 mm as well as 3 mm retrolisthesis L3 on L4 and 2 mm anterolisthesis of L4 on L5. No vertebral body compression fractures. No suspicious bony lesions. Multilevel facet hypertrophy is seen throughout the lumbar spine. Mild degenerative endplate changes are noted. Soft tissues: Overlying bowel gas pattern is normal. No suspicious soft tissue calcifications. Clips are seen projecting over the pelvis. IMPRESSION: Vlot-ym-[id number] multilevel spondylosis and mild degenerative spondylolistheses. Dictated by: Romeo Pierre M.D. on 01/08/2022 at 20:07 Approved by: Romeo Pierre M.D. on 01/08/2022 at 20:09
== END ==
PROVIDERS: PCP Family Medicine; Referring Provider Family Medicine; Visit Provider Family Medicine
DX: M54.42 Lumbago with sciatica, left side (principal); M47.816 Spondylosis without myelopathy or radiculopathy, lumbar region; M43.16 Spondylolisthesis, lumbar region; G89.29 Other chronic pain
CPT/HCPCS: 72100

== ENCOUNTER → 2022-02-16 10:24 | Outpatient (CLI) | payer OTHER, SELFPAY ==
[2022-02-16 12:15] LABS: COVID19 -Nasal RAPID Negative (Negative)
== END ==
PROVIDERS: PCP Family Medicine; Visit Provider Surgery
DX: Z20.822 Contact with and (suspected) exposure to COVID-19 (principal); Z01.812 Encounter for preprocedural laboratory examination
CPT/HCPCS: 87635; C9803

== ENCOUNTER 2022-02-17 06:49 | Day surgery (SDC) | payer OTHER, SELFPAY ==
[2022-02-13 07:34] VITALS: BMI 33.5
[2022-02-17] VITALS (10 sets, daily range): BP systolic 98–148; BP diastolic 62–86; PULSE 65–81; RESP 12–18; TEMP 36.1–36.8; O2SAT 95–98; BMI 33.5
--- NOTE | 2022-02-17 | PATH_ITS ---
[facility] Accession Number: [id number] . 01 Material submitted: . PART A: breast - RIGHT BREAST SCAR PART B: breast - RIGHT BREAST - LONG LATERAL, SHORT SUPERIOR STITCHES . 01 Diagnosis: A. Right Breast Scar, Excision: Skin with scar and associated surgical site organizing changes. No evidence of malignancy. . B. Right Breast, Excision: Atypical lobular hyperplasia/lobular carcinoma in situ. Breast tissue with surgical site organizing changes. Background breast with columnar cell change/columnar cell hyperplasia, focal fibroadenomatoid change, focal usual ductal hyperplasia, and associated microcalcifications. Skin with surgical site organizing changes. Negative for ductal carcinoma in situ and invasive malignancy. V 02/24/2022 1249 Local . 01 Electronically signed: . Genny Laura MD, Pathologist NPI- [id number] . 01 Gross description: . A. Received in formalin labeled with the patient's name, , and right breast scar, and consists of an unoriented ellipse of skin measuring 6.8 x 0.8 cm and is excised to a depth of 1.0 cm. The cutaneous surface is significant for a linear longitudinal induration consistent with scar running the length of the specimen. The margin is inked blue, and the specimen is serially sectioned into 16 slices to reveal white, firm subcutaneous tissue and yellow soft adipose tissue with no lesions identified. The specimen is submitted entirely as follows: A1: Slice 1 tip perpendicular. A2: Slice 16 tip perpendicular. A3: Slices 2, 3, and 4. A4: Slices 5, 6 and 7. A5: Slices 8, 9 and 10. A6: Slices 11, 12 and 13. A7: Slices 14 and 15. The specimen was removed on 02/17/2022, time not provided, cold ischemic time cannot be calculated, total fixation time is approximately 33 hours. B. Received: In formalin labeled with the patient's name, , and right breast long lateral short superior stitch. Specimen: Oriented right lumpectomy with skin. Weight: 65 grams. Measurement: 4.0 cm anterior to posterior, 6.5 cm medial to lateral, and 6.6 cm superior to inferior. Skin ellipse: Present, measuring 7.2 x 2.0 cm with a eduardo, wrinkled, unremarkable cutaneous surface. Note: The skin ellipse is inked orange for lateral and is marked with a single long suture also designating lateral (photographs taken). Wire: Absent. Margins: Inked by surgeon as follows: anterior green, inferior blue, lateral orange, medial yellow, posterior black, superior red (reinforced at the bench). Also attached are two sutures, a long suture is attached to the skin designating lateral and a short suture is attached to the breast tissue inked in red designating superior per the requisition. Sliced: From superior to inferior into 12, 3 mm slices. Lesions: One. Lesion #1: Description: Hollow cavity with a roughened, raised area measuring 1.0 x 0.9 x 0.5 cm. The remaining cavity is smooth and slightly hemorrhagic. The cavity is surrounded by white, rubbery presumed fibrous tissue with no discrete lesions identified. Size: 2.7 x 2.0 x 1.3 cm. Slices involved: Slices 4-10. Biopsy site: Not identified. Distance to margins: 0.2 cm from the green margin, 0.2 cm from the black margin, greater than 0.5 cm from all remaining margins. Other: The remaining cut surafaces are yellow to white fibroadipose tissue with dense fibrous tissue occupying approximately 60% of the cut surface. No additional lesions are identified. Fixation time: The specimen was removed on 02/17/2022, time not provided, cold ischemic time cannot be calculated. Total fixation time is approximately 30 hours. Research Professor sections are submitted as follows: B1-B2: Research Professor slice 1 superior margin perpendicular. B3-B4: Research Professor slice 2 to include yellow, green, and black margins. B5-B6: Research Professor slice 3 to include orange, green, and black margins. B7-B8: Research Professor slice 4 to include black and green margins. B9-B10: Research Professor slice 5 to include yellow, black, green, and orange margins. B11-B12: Research Professor slice 6 to include orange, green, and black margins. B13-B14: Research Professor slice 7 to include green, yellow, and black margins. B15-B16: Research Professor slice 8 to include orange, yellow, green, and black margins. B17-B18: Research Professor slice 9 to include green, yellow, and black margins. B19-B20: Research Professor slice 10 to include black, yellow, and orange margins. B21-B22: Research Professor slice 11 to include green, blue, black, and yellow margins. B23-B24: Representatative slice 12 inferior margin perpendicular. ([id number]) /CHRISTIANE 02/18/2022 0911 Local . 01 Pathologist provided ICD-10: C50.911 . 01 CPT . 394822, [id number] Specimen Comment: A courtesy copy of this report has been sent to [phone] Performed at: 01 [facility] [address] [place] [address], [place], [place] [id number] MD Sarbjit Mendes MD Phone: [phone]
--- NOTE | 2022-02-17 07:18 | SUR.OPER ---
Supine on padded OR bed, head on pillow, arms secured on padded arm boards at <90 degrees abduction, legs uncrossed, safety belt at thigh, tape over blanket over lower legs.
[2022-02-17] MEDS: LACTATED RINGERS 1,000 ML 120 ML IV ×2 (07:48→09:00)
--- NOTE | 2022-02-17 07:48 | PM.HP.1 ---
History of Present Illness History of Present Illness Date Patient Seen: 02/17/22 Time Patient Seen: 07:49 Chief complaint: SDC Narrative: Eva is a 56-year-old woman who had a recent right lumpectomy with sentinel lymph node biopsy for invasive breast cancer. The lymph node was negative and the margins were clear of invasive cancer however DCIS was found incidentally and went up to the anterior margin of the specimen. Patient History Medical History (Updated 02/17/22 @ 07:53 by Kwesi Young MD) Anesthesia Anxiety Arthritis Breast cancer, right breast Chronic low back pain with left-sided sciatica Depression Depression with anxiety Diverticulitis Ductal carcinoma in situ of right breast Essential hypertension (03/19/16) Graves' disease Hearing impaired History of Graves' disease HLD (hyperlipidemia) HTN (hypertension) Hx of migraine headaches Hyperlipidemia Hyperthyroidism Mild sleep apnea MINOR on CPAP Surgical History (Updated 02/13/22 @ 07:40 by Dana Albert RN) History of lumpectomy (1997) Status post breast reduction (2013) Status post right breast lumpectomy (01/06/22) Status post tubal ligation (1999) Family & Social History Family History Brother Age: 61 Bipolar 1 disorder Schizophrenia Mother Age: 86 Hypertension Sister Age: 60 Bipolar 1 disorder Social History: household members spouse Tobacco & Substance use: Smoking Status Former smoker alcohol intake current alcohol intake frequency a few times a week Substance Use Type does not use Meds Home Medications and Allergies Home Medications Medication Instructions Recorded Confirmed Type acetaminophen 500 mg tablet 1,000 mg PO PRN PRN Pain ##0 06/17/17 02/13/22 History (Tylenol Extra Strength) hydrochlorothiazide 25 mg tablet See Rx Instructions .Route 09/15/19 02/13/22 Rx .COMPLEX #90 tabs simvastatin 20 mg tablet See Rx Instructions .Route 12/22/21 02/13/22 Rx .COMPLEX #90 tabs valacyclovir 1 gram tablet 1,000 mg PO PRN PRN Outbreak 01/01/22 02/13/22 History fluoxetine 20 mg capsule 20 mg PO BID 01/05/22 02/13/22 History metoprolol succinate 25 mg See Rx Instructions .Route 01/30/22 02/13/22 Rx tablet,extended release 24 hr .COMPLEX #90 tabs Allergies Allergy/AdvReac Type Severity Reaction Status Date / Time No Known Drug Allergies Allergy Verified 02/17/22 07:39 Exam Vital Signs (past 8 hours): - 02/17/22 07:40 Temperature 98.1 F Pulse Rate 68 Respiratory Rate 18 Blood Pressure 125/72 Pulse Oximetry 97 Oxygen Delivery Method Room Air Oxygen Delivery Method Room Air Narrative Exam Narrative: Well-healed right breast lumpectomy and sentinel node incisions Assessment & Plan Assessment and plan (1) Ductal carcinoma in situ (DCIS) of right breast: Status: Acute Plan Plan to re-excise the anterior margin of the lumpectomy cavity. Time Spent With Patient Critical Care time: I spent a total of [] minutes of critical care time on this patient's care today; this time is exclusive of procedural time.
[2022-02-17] MEDS: CEFAZOLIN 2 GM/100 ML PREMIX 100 ML IV (08:10)
[2022-02-17] MEDS: BUPIVACAINE 0.5% W/ EPI (PF) 30 ML VIAL INJ (08:25)
[2022-02-17] MEDS: LIDOCAINE 1% 20 ML INJ (08:25)
--- NOTE | 2022-02-17 09:33 | PM.OP.1 ---
Operative Date/Time/Diagnoses Date of procedure: 02/17/22 Time of procedure: 09:33 Pre-op diagnosis: Right breast ductal carcinoma in Situ Post-op diagnosis: same Procedure & Clinicians Procedure: Right breast re-excision lumpectomy Same procedure as scheduled: Yes Surgeon: Delvin Young Anesthesia Type: General Operative Notes Procedure in detail: The patient was given preoperative antibiotic. The patient was brought to the operating room, placed on the table in the supine position, general anesthesia was induced. Arms were abducted on arm boards. The right breast was prepped and draped in the usual fashion. A time-out was performed. We made a 10 cm incision to excise the prior lateral lumpectomy scar. This was sent as ?scar?. We dissected down through the subcutaneous adipose tissue to the wound cavity and entered from the posterior aspect of it. Because the cavity was slightly more anterior we excised additional skin and removed a crescent of breast tissue which was mostly anterior but also somewhat inferior, medial and superior and even somewhat posterior to the old cavity. We effectively excised the entire wound cavity. A short stitch was used to delvin the superior aspect and a long stitch to delvin the lateral aspect of the specimen. We then used the paint kit to more precisely delineate the orientation of the specimen. Few bleeders were addressed with cautery. We then irrigated the new wound cavity. We closed the skin incision with multiple interrupted 3-0 Vicryl dermal sutures and a running 4 Monocryl subcuticular closure Steri-Strips were applied followed by dry gauze and a breast binder. EBL: 20 mL Post-operative Condition: stable Disposition: PACU
[2022-02-17] MEDS: ACETAMINOPHEN 325 MG TABLET 650 MG PO (10:07)
== END 2022-02-17 10:43 | disposition home or self-care (01) ==
PROVIDERS: PCP Family Medicine; Referring Provider Surgery; Visit Provider Surgery
PROC: (CPT 19301; principal; 2022-02-17 07:45)
DX: D05.11 Intraductal carcinoma in situ of right breast (principal); I10 Essential (primary) hypertension; E03.9 Hypothyroidism, unspecified; G47.33 Obstructive sleep apnea (adult) (pediatric)
CPT/HCPCS: 19301; J0690; J1100; J1885; J2250; J2405; J2704; J3010

== ENCOUNTER → 2022-06-10 14:09 | Outpatient (CLI) | payer OTHER, SELFPAY ==
--- NOTE | 2022-06-10 14:10 | DI.RAD.S_ITS ---
PROCEDURE: XR DEXA AXIAL SKELETON INDICATIONS: osteoporosis COMPARISON: None. FINDINGS: This blank DEXA report has been sent in error by the PACS system. The correct and complete report will be forthcoming in 1-2 days. Thank you for your patience and understanding. Dictated by: John Barrera M.D. on 06/12/2022 at 8:13 Approved by: John Barrera M.D. on 06/12/2022 at 8:13
== END ==
PROVIDERS: PCP Family Medicine; Referring Provider Internal Medicine Hematology & Oncology; Visit Provider Internal Medicine Hematology & Oncology
DX: C50.911 Malignant neoplasm of unspecified site of right female breast (principal); Z13.820 Encounter for screening for osteoporosis; M85.852 Other specified disorders of bone density and structure, left thigh; Z78.0 Asymptomatic menopausal state
CPT/HCPCS: 77080; 77081; 77086

== ENCOUNTER → 2022-07-08 16:17 | Outpatient (CLI) | payer OTHER, SELFPAY ==
--- NOTE | 2022-07-08 16:19 | DI.MRI.S_ITS ---
PROCEDURE: MR LUMBAR SPINE WO CON INDICATIONS: low back pain TECHNIQUE: Noncontrast sagittal T1 spin echo and T2 fast echo, sagittal STIR, and T2 fast spin echo through the lumbar spine. In cases with scoliosis, additional coronal T2 fast spin echo may be performed. COMPARISON: [facility], CR, XR LUMBAR SPINE 2-3V, 01/08/2022, 14:47. FINDINGS: Image quality: Excellent. Alignment and Curvature: 3 mm anterolisthesis of L4 on L5. Bone Marrow: Marrow is of normal overall signal. No acute vertebral body compression fractures. Spinal Cord: Conus medullaris terminates at the L2 level. Visualized cord demonstrates normal signal and size. Paraspinous Soft Tissues: No paravertebral masses. T12-L1: Normal appearance. L1-L2: Minimal disc bulge. Mild facet hypertrophy. No canal stenosis or foraminal stenosis. L2-L3: Minimal disc bulge. Mild facet hypertrophy. No canal stenosis. [id number] left foraminal stenosis. L3-L4: Disc bulge. Mild facet hypertrophy. Borderline canal stenosis. [id number] bilateral foraminal stenosis. L4-L5: 3 mm anterolisthesis of L4 on L5. Posterior disc bulge. Prominent facet hypertrophy. Moderate to severe canal stenosis. Moderate bilateral foraminal narrowing with mild flattening deformity on the exiting bilateral L4 nerve roots. L5-S1: Facet hypertrophy. No canal stenosis. Moderate bilateral foraminal narrowing with flattening deformity on the exiting bilateral L5 nerve roots. IMPRESSION: 1. There is multilevel underlying facet arthropathy. 2. Canal stenosis is moderate to severe at L4-L5. 3. Moderate bilateral foraminal narrowing at L4-L5 and L5-S1. Dictated by: Fredrick Hood M.D. on 07/09/2022 at 8:02 Approved by: Fredrick Hood M.D. on 07/09/2022 at 8:06
== END ==
PROVIDERS: PCP Family Medicine; Referring Provider Family Medicine; Visit Provider Family Medicine
DX: M48.061 Spinal stenosis, lumbar region without neurogenic claudication (principal); M48.07 Spinal stenosis, lumbosacral region; M47.816 Spondylosis without myelopathy or radiculopathy, lumbar region; M54.42 Lumbago with sciatica, left side; G89.29 Other chronic pain
CPT/HCPCS: 72148

== ENCOUNTER → 2022-10-01 09:32 | Outpatient (CLI) | payer OTHER, SELFPAY ==
[2022-10-01 10:39] LABS: Add Manual Diff / Slide Review NO; Basophils Absolute Auto 100 /uL (0-100); Basophils Percent Auto 0.7 % (0-2); Eosinophils Absolute Auto 200 /uL (0-450); Hematocrit 36.6 % (36-46); Hemoglobin 12.3 g/dL (12.0-16.0); Lymphocytes Absolute Auto 1100 /uL (1100-4500); Lymphocytes Percent Auto 14.9 % (25-40); Mean Corpuscular HGB Conc 33.6 % (30-36); Mean Corpuscular Hemoglobin 29.1 PG (26-34); Mean Corpuscular Volume 86.5 fL (80-100); Monocytes Absolute Auto 600 /uL (0-900); Monocytes Percent Auto 8.5 % (3-14); Neutrophils Absolute Auto 5600 /uL (1500-7000); Neutrophils Percent Auto 73.9 % (50-75); Platelet Count 337 X10^3/uL (150-400); Red Blood Cell Count 4.24 X10^6/uL (4.0-5.2); Red Cell Distribution Width 13.1 % (11.6-14.8); White Blood Cell Count 7.6 X10^3/uL (4.5-11.0)
[2022-10-01 11:01] LABS: BUN Creatinine Ratio 14.5 (6-22); Blood Urea Nitrogen 11 mg/dL (7-17); Calcium 9.9 mg/dL (8.4-10.2); Carbon Dioxide 34 mmol/L (22-32); Chloride 98 mmol/L (98-107); Estimated Glomerular Filt Rate > 60 mL/min (>60); Glucose 125 mg/dL (70-100); HEMOLYSIS < 15 (0-50); Potassium 3.4 mmol/L (3.4-5.1); Sodium 138 mmol/L (137-145)
[2022-10-02 05:54] LABS: x Labcorp Estim. Avg Glu (eAG) 126 mg/dL (.)
== END ==
PROVIDERS: PCP Family Medicine; Referring Provider Orthopaedic Surgery Orthopaedic Surgery of the Spine; Visit Provider Orthopaedic Surgery Orthopaedic Surgery of the Spine
DX: Z01.818 Encounter for other preprocedural examination (principal); Z01.812 Encounter for preprocedural laboratory examination; R73.9 Hyperglycemia, unspecified
CPT/HCPCS: 36415; 80048; 83036; 85025; 93005; 93010

== ENCOUNTER 2022-11-06 06:26 | Inpatient (IN) | payer OTHER, SELFPAY ==
[2022-10-23 07:38] VITALS: BMI 31.7
[2022-11-06] VITALS (19 sets, daily range): BP systolic 91–119; BP diastolic 46–75; PULSE 63–79; RESP 8–19; TEMP 36.2–36.8; O2SAT 80–100; BMI 31.7
--- NOTE | 2022-11-06 | DI.RAD.S_ITS ---
PROCEDURE: XR LUMBAR SPINE 2-3V INDICATIONS: L4-5 TLIF TECHNIQUE: 2 intraoperative fluoroscopic views of the lumbar spine were acquired. COMPARISON: [facility], , XR LUMBAR SPINE 2-3V, 01/08/2022, 14:47. FINDINGS: Intraoperative fluoroscopic images shows posterior fusion of L4-5 level with surgical hardware and intervertebral spacer in place. IMPRESSION: Fluoro guidance was provided intraoperatively for L4-5 TLIF. Dictated by: Branden Walsh M.D. on 11/06/2022 at 10:44 Approved by: Branden Walsh M.D. on 11/06/2022 at 10:47
[2022-11-06] MEDS: LACTATED RINGERS 1,000 ML 42 ML IV ×2 (07:12→11:09)
--- NOTE | 2022-11-06 07:40 | PM.PREOP ---
Pre-operative Note COVID-19 Criteria for continued procedure: Expected advancement of disease process, Possibility delay results in more complex future surgery or treatment, Increased loss of function, Continuing or worsening of significant or severe pain, Deterioration of the patient's condition or overall health and Delay expected to result in less-positive ultimate med/surg outcome Interval Note History & Physical reviewed/Exam performed by Physician: Yes Changes to H&P: No
[2022-11-06] MEDS: CEFAZOLIN 2 GM/100 ML PREMIX 100 ML IV ×3 (08:00→23:40)
--- NOTE | 2022-11-06 08:14 | SUR.OPER ---
Prone on spine table, head in foam head support, padded chest and pelvic supports, gel pad at knees, lower legs supported by pillows; nipples, genitalia and toes free of pressure, arms secured on foam padded arm boards at <90 degrees abduction. Tape over blanket at thigh secured to table.
[2022-11-06] MEDS: BUPIVACAINE LIPOSOME 266 MG/20 ML VIAL INJ (08:33)
[2022-11-06] MEDS: BUPIVACAINE 0.25% (PF) 30 ML, EPINEPHrine 0.15 MG INJ (08:33)
--- NOTE | 2022-11-06 10:03 | PM.OP.1 ---
Operative Date/Time/Diagnoses Date of procedure: 11/06/22 Time of procedure: 07:40 Pre-op diagnosis: 1. L4-5 spondylolisthesis 2. L4-5 spinal stenosis with neurogenic claudication Post-op diagnosis: same Procedure & Clinicians Procedure: 1. L4-5 Postero-lateral and posterior interbody fusion 2. L4-5 interbody cage placement. 3. L4-5 decompressive laminectomy with bilateral facetecomies 4. L4-5 Posterior non-segmental instrumentation 5. [place] of bone marrow from iliac crest 6. Utilization of microsurgical technique and operating microscope Same procedure as scheduled: Yes Indications: Patient has been having chronic back pain and worsening lumbar radiculopathy and symptoms of neurogenic claudication. Patient failed multiple conservative management with worsening pain weakness and numbness in her lower extremity. Patient has been having difficulty performing activity of daily living. After discussing risks benefits of treatment options, patient elected proceed with surgery. Surgeon: Meir Mcgrath Mail Delivery Supervisor: Leon Harden Click Yes if Unassisted: No Anesthesia Type: General Operative Notes Closure Type: primary Specimen(s): none sent Prosthetic devices, grafts, tissues, transplants, or devices: Globus revolve screws, Rise cage Estimated Blood Loss (mL): 50 Blood products transfused: none Procedure in detail: Patient was seen in the preoperative area. Risks and benefits of the surgery was discussed with the patient. Informed consent was obtained from the patient and placed in the chart. Surgical site was marked. Patient was taken to the operative room. General anesthesia was administered. Prophylactic antibiotic was given to the patient less than 30 min before the incision was made. Patient was placed into a prone position on the Esteban table. Patient's back was then prepped and draped in the sterile fashion. Time-out was performed at this time. Using AP and lateral C-arm imaging the interval between L4-5 was identified and marked on patient's back. A 2 inch incision 2 in from midline was made on the right side first. The fascia was incised in line with skin incision. Globus MARS retractors was placed inside the incision and docked onto the L4 lamina. Using microsurgical technique and operating microscope, a L4 laminectomy and L4-5 facetectomy was performed using a Kerrison rongeur. The laminectomy and facetectomy was performed in order to decompress patient's cauda equina as well as the nerve roots exiting at the L4-5 level. The disc space at L4-5 was identified. And a total diskectomy was performed at L4-5 level. The endplates were decorticated using a rasp and shaver. The total diskectomy and decortication was performed at L4-5 level in order to to accomplish a L4-5 fusion. The local bone from the laminectomy and facetectomy was saved for local bone grafting. After the total diskectomy and decortication was completed, Trifecta bone graft material was combined with local bone that was harvested earlier. At this time, a separate skin is incision was made over the iliac crest. A Jamshidi needle was inserted into the iliac crest through a separate skin incision. 5 cc of bone marrow aspiration was obtained through the separate skin incision using a Jamshidi needle from the iliac crest. The bone marrow aspiration was combined with local bone and the Trifecta bone grafting material. The bone grafting material was placed into the L4-5 interbody space along with a expandable cage. The cage was expanded to its maximum height using the torque limiting screwdriver. At this time a mirror image incision was made on the left side. The fascia was incised in line with the skin incision. Globus MARS retractor was inserted and docked onto the L4-5 posterolateral gutter. Using the power drill, posterior-lateral decortication was performed at L4-5 level until bleeding cortical bone was identified. The remaining bone grafting material was placed into the L4-5 posterior lateral gutter he order to accomplish posterolateral fusion at the L4-5 level. Using the double C-arm technique, pedicle screws were placed into the L4-5 pedicles bilaterally. This was done by placing the Jamshidi needle into the pedicles, then placing the guidewires over the Jamshidi needle, and finally placing the cannulated screws over the guidewires bilaterally. After the pedicle screws were placed, 2 titanium rods was locked into the heads of the pedicle screws using locking caps and torque limiting screwdriver. After all the hardware was placed, and confirmed with AP and lateral C-arm imaging, the wound was then irrigated with sterile normal saline and packed with Ray-Ofelia gauze for 3 min to accomplish hemostasis. After the gauze was removed the deep fascia was closed with #1 Vicryl suture. The subcutaneous layer was closed with 2-0 Vicryl. The skin was closed with skin damien. Patient tolerated the procedure well. There were no complications. The Operation could not have been safely performed without compromising the technical result or length of the procedure, without the assistance of a skilled surgical garment fitter. The surgical garment fitter was medically necessary for proper positioning, retraction and manipulation of instruments, proper exposure, surgical preparation, and manipulation of tissue. Complications: none Post-operative Condition: stable Disposition: PACU Plan for aftercare: Admit to inpatient hospital
[2022-11-06] MEDS: HYDROMORPHONE 2 MG INJ IV ×2 (10:33→10:42)
[2022-11-06] MEDS: OXYCODONE/ACETAMINOPHEN 5/325 TABLET 1 TAB PO (10:39)
[2022-11-06] MEDS: hydrOXYzine 50 MG/ML INJ 25 MG IM (10:43)
[2022-11-06] MEDS: ACETAMINOPHEN IV 1,000 MG/100 ML VIAL 400 MG IV (11:09)
[2022-11-06] MEDS: GABAPENTIN 100 MG CAPSULE 200 MG PO (12:01)
[2022-11-06] MEDS: LACTATED RINGERS 1,000 ML 125 ML IV ×2 (12:01→20:53)
[2022-11-06] MEDS: OXYCODONE IR 10 MG TABLET PO ×3 (14:38→20:47)
[2022-11-06] MEDS: hydrOXYzine pamoate 25 MG CAPSULE PO ×2 (14:39→18:18)
--- NOTE | 2022-11-06 15:44 | PT-IP ANOTE ---
PT reviews chart and checks on pt for day of surgery PT eval and pt is sleeping and too lethargic to participate per nsg and PT assessment.
[2022-11-06] MEDS: DOCUSATE 100 MG CAPSULE PO (20:47)
[2022-11-06] MEDS: FLUoxetine 20 MG CAPSULE PO (20:47)
[2022-11-06] MEDS: GABAPENTIN 100 MG CAPSULE 300 MG PO (20:47)
[2022-11-06] MEDS: ATORVASTATIN 20 MG TABLET 10 MG PO (20:47)
[2022-11-06] MEDS: SENNOSIDES 8.6 MG TABLET 17.2 MG PO (21:07)
[2022-11-07] VITALS (9 sets, daily range): BP systolic 101–116; BP diastolic 50–65; PULSE 66–83; RESP 16–18; TEMP 36.2–37; O2SAT 94–100
[2022-11-07] MEDS: hydrOXYzine pamoate 25 MG CAPSULE PO ×5 (00:20→21:31)
[2022-11-07] MEDS: OXYCODONE IR 10 MG TABLET PO ×5 (03:05→21:29)
[2022-11-07] MEDS: LACTATED RINGERS 1,000 ML 125 ML IV ×3 (05:35→21:27)
[2022-11-07] MEDS: CHOLECALCIFEROL (VITAMIN D3) 1,000 UNIT TABLET 2000 UNIT PO (08:10)
[2022-11-07] MEDS: hydroCHLOROthiazide 25 MG TABLET PO (08:10)
[2022-11-07] MEDS: CALCIUM CARBONATE 500 MG TAB 1000 MG PO (08:11)
[2022-11-07] MEDS: DOCUSATE 100 MG CAPSULE PO ×2 (08:11→21:30)
[2022-11-07] MEDS: FLUoxetine 20 MG CAPSULE PO ×2 (08:11→21:31)
--- NOTE | 2022-11-07 10:15 | PT.IIE ---
Current Diagnoses Spondylolisthesis, lumbar region (11/06/22) Spinal stenosis, lumbar region with neurogenic claudication (11/06/22) Surgery Performed Operation Date: 11/06/22 07:45 Actual Procedures p L4-5 TLIF - Meir Mcgrath MD Surgical History (Last Reviewed 11/07/22 @ 10:19 by Leon Harden PA-C) History of lumpectomy (1997) History of surgery (02/17/22) Hx of colonoscopy (2021) Hx of colonoscopy with polypectomy (~2010) Status post breast reduction (2013) Status post right breast lumpectomy (01/06/22) Status post tubal ligation (1999) Medical History (Last Reviewed 11/07/22 @ 10:19 by Leon Harden PA-C) Anesthesia Anxiety Arthritis Breast cancer, right breast Chronic low back pain with left-sided sciatica Depression Depression with anxiety Diverticulitis Ductal carcinoma in situ of right breast Essential hypertension (03/19/16) Graves' disease Hearing impaired History of COVID-19 (04/2021) History of Graves' disease HLD (hyperlipidemia) HTN (hypertension) Hx of migraine headaches Hyperlipidemia Hyperthyroidism Labial cyst Mild sleep apnea MINOR on CPAP Osteopenia Physical Therapy Inpatient Evaluation/Re-Eval M1 PT/OT-IP Prior Functional Status Start: 11/06/22 15:24 Freq: NEEDED Status: Active Protocol: Document 11/07/22 10:15 AB (Rec: 11/07/22 12:52 AB [email or web address]) Medical Review Prior Functional Status Medical History Reviewed Yes Communication able to make needs known Mobility and Gait pt stated that she is modified independent with all mobilities and ambulationw ithotu AD but tends to furniture walk Social History Household Members spouse Living Arrangements House Home Environment High Toilet Home Equipment Front Wheel Walker,Four Wheel Walker,Bedside Commode,Hand Held Shower Additional Social History Comment stated that her spouse works the whole day; daughter at home with her for now until january with her spouse but daughter just had a baby and cannot assist her as well stated that her friend may be able to stay with her and assist her M2 PT-IP Current Condition Start: 11/06/22 15:24 Freq: NEEDED Status: Active Protocol: Document 11/07/22 10:15 AB (Rec: 11/07/22 12:52 AB [email or web address]) Physical Therapy Current Condition Current Condition Evaluation Date 11/07/22 Treatment Diagnosis s/p L4-5 TLIF; difficulty in walking Onset Date 11/06/22 M3 PT-IP Subjective Start: 11/06/22 15:24 Freq: NEEDED Status: Active Protocol: Document 11/07/22 10:15 AB (Rec: 11/07/22 12:52 AB [email or web address]) Subjective Physical Therapy Visit Type Type Initial Evaluation Visit Start Time 10:15 Visit Stop Time 11:14 Total Visit Minutes 59 Number of NUCLEAR MEDICINE PHYSICIAN Visits 0 Physical Therapy Visit Comments Patient Comments agreeable to do PT Therapy Pain Assessment Pain When Pain Assessed At Rest Pain Present Pain Present Pain Reported Location Lower Back Intensity 7 Scale Used Numeric (0 - 10) Pain Management Techniques Apply Cold,Distraction, Modification of Treatment,Re- positioning,Timing of Activity with Medications M4 PT-IP Mobility and Gait Start: 11/06/22 15:24 Freq: NEEDED Status: Active Protocol: Document 11/07/22 10:15 AB (Rec: 11/07/22 12:52 [email or web address]) PT-Bed Mobility Assessment Rolling Type of Rolling Log Rolling Level of Assist Moderate Assistance,1 Person Assistance Supine to Sit Supine to Sit Moderate Assistance,1 Person Assistance,Bedrails Scooting Scooting to Edge of Bed Maximum Assistance PT-Transfer Assessment Sit to and From Stand Sit to and from Stand Moderate Assistance,Maximum Assistance,1 Person Assistance ,Use of Upper Extremities Equipment Transfer Assistive Device Gait Belt,Front Wheeled Walker Orthotic/Prosthetic Devices or Brace: No Transfers Transfer Destination Chair,Bedside Commode Transfer Technique Stand Step Pivot Transfer Ability Level of Assist Minimal Assistance,Moderate Assistance,Maximum Assistance, 1 Person Assistance,Use of Upper Extremities Comments Mobility Comments pt supine in bed and agreeable to do PT. educated on back precatuions and log roll bed mobility. BP in supine: 96/53. log roll supine to sit mod A and max cues. used bed rail to assist. able to sit on EOB CGA. c/o increase back pain/spasm. pt already had pain meds and muscle relaxant. BP in sittin/55. pt has urinary incontinence and assisted to use the bedside commode. completed sit to stand max A and max cues from EOB. step transfer to bedside commode mod to max A and cues . NAC in room and assisted with brief management and hygiene care. completed sit to stand from the bedside commode mod A and cues. able to maintain standing balance min to mod A while assisting with brief management. pt was able to take steps ~ 2 ft using FWW mod to max A and sat on the chair. pt agreed to attempt walking. educated on sit to stand techniques and completed sit to stand from the chair min A and cues. upon standing pt stated that she can see things crawling on the floor. instructed pt to sit back down. BP checked: 90 /41. deferred ambulation. positioned pt on the chair. call light and table placed within reach. informed nurse regarding pt's BP and symptoms . set up caregiver training with pt and stated that she will inform her frined to come in tomorrow at 10am for training Gait Assessment Gait Gait Assistance Required: Minimum Assistance,Moderate Assistance Distance (Feet) 2 Able to Maintain Weight Bearing Status Yes During Gait Assistive Devices Assistive Device Gait Belt,Front Wheeled Walker Orthotic/Prosthetic Devices or Brace: No Gait Deviations General Gait Pattern Decreased Stride Length, Decreased Feet Clearance,Step- to Gait Factors Limiting Gait Function Factors Limiting Gait Function Decreased Activity Tolerance, Difficulty Following Directions,Limited Range of Motion,Pain,Poor Balance,Poor Safety Awareness PT-Balance Assessment Sitting Balance and Reactions Static Sitting Balance Ability Good Dynamic Sitting Balance Ability Fair Standing Balance and Reactions Static Standing Balance Ability Poor Dynamic Standing Balance Ability Poor Device Used FWW M5 PT-IP Objective Assessments Start: 11/06/22 15:24 Freq: NEEDED Status: Active Protocol: Document 11/07/22 10:15 AB (Rec: 11/07/22 12:52 [email or web address]) Orientation Orientation/Cognition Level of Alertness Alert Orientation Name,Place,Situation Language Function Ability No Deficits Noted Safety Awareness Decreased Safety Awareness Memory Description Short Term Impaired Gross Range of Motion Lower Extremity ROM Assessment Within Functional Limits Strength Lower Extremity Strength Assessment Left Impaired Hip 3+/5 Knee 3+/5 Sensation Assessment Sensation Gross Sensation Right UE Impaired,Left UE Impaired Sensation Description Tingling Comments Sensation Comments stated that she has chronic finger numbness on B hands Muscle Tone Muscle Tone WNL Yes M6 PT-IP Treatment Start: 11/06/22 15:24 Freq: NEEDED Status: Active Protocol: Document 11/07/22 10:15 AB (Rec: 11/07/22 12:52 AB [email or web address]) Physical Therapy Treatment Education Education Provided Precautions,Weight Bearing Status,Post-Op Packet,Safety M7 PT-IP Assessment and Plan Start: 11/06/22 15:24 Freq: NEEDED Status: Active Protocol: Document 11/07/22 10:15 AB (Rec: 11/07/22 12:52 AB [id number]) PT Summary Assessment and Plan Potential Rehabilitation Potential Fair Status of Condition at Evaluation Evolving Summary Impairments Pain,ROM,Strength,Balance, Coordination,Sensation,Tone, Cognition,Bed Mobility, Transfers,Gait,Activity Tolerance Assessment Summary pt s/p L4-5 TLIF POD1. pt with c/o increase and also has low BP with c/o lightheadedness. pt requiring mod to max A with mobility but unable to tolerate much activity today and unable to ambulate. caregiver training set up for tomorrow at 1000am. will continue to assess progress. d/c plan: SNF vs home with 24/7 assist and HHPT . Goals Bed Mobility Goal Minimal Assistance Transfer Goal Minimal Assistance,Front Wheeled Walker Gait Goal Minimal Assistance,Front Wheel Walker Gait Distance 100 Other Goals improve bed mobility, transfers and ambulation using FWW 150 ft SBA Days to Meet Goals 10 Frequency of Treatment Frequency Of Treatment Twice a Day Treatment Plan Other Recommendations and Next Treatment caregiver trainin11/08/22 @ [facility] 10am Precautions Lumbar Precautions Log Roll,No Twisting,Limit Bending,Lifting Restriction of 10 lbs,Gait Belt above Incisional Area Recommendations To Nursing Amount of Assist Needed 1 Person Assist Discharge Recommendations PT Discharge Recommendations Home with 24/7 Assist Available,Home Health,SNF Rehab,Home vs SNF Transportation Needs at Discharge Wheelchair/Cabulance
--- NOTE | 2022-11-07 10:16 | P.DS_ITS ---
History of Present Illness History of Present Illness Date Patient Seen: 11/07/22 Time Patient Seen: 10:16 Chief complaint: Back pain Narrative: Pain is [id number]. Denies fever or chills. No nausea or vomiting Discharge Providers Provider Date of admission: 11/06/22 06:26 Discharge Date: 11/07/22 Primary care physician: Leon Giron DO Consults: 11/06/22 11:26 Consult to Occupational Therapy Evaluate & Treat Comment: Physician Instructions: Evaluate and treat Consult to Physical Therapy Evaluate & Treat Comment: Physician Instructions: Evaluate and Treat Discharge provider: Leon Harden PA-C Summary Hospital Course Discharge Diagnosis: ?1. L4-5 spondylolisthesis 2. L4-5 spinal stenosis with neurogenic claudication Post-op diagnosis: same Hospital Course: 1. L4-5 Postero-lateral and posterior interbody fusion 2. L4-5 interbody cage placement. 3. L4-5 decompressive laminectomy with bilateral facetecomies 4. L4-5 Posterior non-segmental instrumentation 5. [place] of bone marrow from iliac crest 6. Utilization of microsurgical technique and operating microscope Same procedure as scheduled: Yes Indications: Patient has been having chronic back pain and worsening lumbar radiculopathy and symptoms of neurogenic claudication. Patient failed multiple conservative management with worsening pain weakness and numbness in her lower extremity.? Patient has been having difficulty performing activity of daily living.? After discussing risks benefits of treatment options, patient elected proceed with surgery. Surgeon: Meir Mcgrath Inside Polisher: Leon Harden Click Yes if Unassisted: No Anesthesia Type: General Operative Notes Closure Type: primary Specimen(s): none sent Prosthetic devices, grafts, tissues, transplants, or devices: Globus revolve screws, Rise cage Estimated Blood Loss (mL): 50 Blood products transfused: none Patient admitted to the hospital for the above-mentioned procedure. Patient taken to the OR yesterday underwent lumbar fusion. Patient back in her room recovering well as in stable condition. Multimodal pain management. Limit bending, twisting, lifting. Patient will discharge home today after physical therapy if safe for home environment. Exam Vital Signs (past 8 hours): - 11/07/22 04:06 11/07/22 07:26 11/07/22 08:00 Temperature 97.7 F Pulse Rate 78 66 Respiratory Rate 18 Blood Pressure 105/55 L Pulse Oximetry 98 100 100 Oxygen Delivery Method Nasal Cannula Nasal Cannula Oxygen Flow Rate 1 1 1 Fraction of Inspired Oxygen 24 11/07/22 08:41 Temperature 97.7 F Pulse Rate 70 Respiratory Rate 18 Blood Pressure 110/55 L Pulse Oximetry 95 Oxygen Delivery Method Oxygen Flow Rate 0 Fraction of Inspired Oxygen Fraction of Inspired Oxygen 24 SaO2/FiO2 Ratio 416 Oxygen Delivery Method Nasal Cannula Oxygen Flow Rate 0 Narrative Exam Narrative: 57-year-old female resting comfortably in bed in no apparent distress. Motor functions intact bilateral lower extremities. Sensation grossly intact to light touch bilateral lower extremities. Const General: cooperative and comfortable Nutritional Appearance: average body habitus Orientation: alert Resp Effort & Inspection: normal respiratory effort and able to speak in complete sentences [facility] Medical History Anesthesia Anxiety Arthritis Breast cancer, right breast Chronic low back pain with left-sided sciatica Depression Depression with anxiety Diverticulitis Ductal carcinoma in situ of right breast Essential hypertension (03/19/16) Graves' disease Hearing impaired History of COVID-19 (04/2021) History of Graves' disease HLD (hyperlipidemia) HTN (hypertension) Hx of migraine headaches Hyperlipidemia Hyperthyroidism Labial cyst Mild sleep apnea MINOR on CPAP Osteopenia Surgical History History of lumpectomy (1997) History of surgery (02/17/22) Hx of colonoscopy (2021) Hx of colonoscopy with polypectomy (~2010) Status post breast reduction (2013) Status post right breast lumpectomy (01/06/22) Status post tubal ligation (1999) Family History Brother Age: 61 Bipolar 1 disorder Schizophrenia Mother Age: 86 Hypertension Sister Age: 60 Bipolar 1 disorder Social History household members: spouse and children Smoking Status: Former smoker Tobacco: How many years used: 34 second hand exposure: No alcohol intake: current substance use type: does not use Discharge Assessment & Plan Assessment and Plan Assessment: Patient progressing as expected status post L4-L5 fusion Plan of Treatment: Multimodal pain management Limit bending, twisting, lifting Discharge home today after physical therapy is safe for home environment. Discharge Plan Discharge Plan Patient Disposition: Home Discharge orders & Medications Prescriptions: New acetaminophen 325 mg Tablet 650 mg PO Q6H PRN (Reason: Fever/Mild Pain (1-3)) Qty: 60 0RF docusate sodium 100 mg Capsule 100 mg PO BID Qty: 10 0RF hydroxyzine pamoate 25 mg Capsule 25 mg PO Q4HR PRN (Reason: Nausea And Vomiting) Qty: 20 0RF oxycodone 5 mg tablet 5 mg PO Q4H PRN (Reason: pain) Qty: 60 0RF Continued hydrochlorothiazide 25 mg tablet See Rx Instructions .ROUTE .COMPLEX Qty: 90 0RF Dose Instruction: TAKE 1 TABLET BY MOUTH EVERY DAY Rx Instructions: TAKE 1 TABLET BY MOUTH EVERY DAY- fluoxetine 20 mg capsule 20 mg PO BID Qty: 180 3RF atorvastatin 10 mg tablet 10 mg PO BEDTIME Qty: 90 3RF gabapentin 100 mg capsule See Rx Instructions PO .COMPLEX Qty: 810 0RF Patient Comments: Pt takes 200mg each afternoon, 300mg @HS Rx Instructions: Start with 1 capsule on day 1 at bedtime, add another capsule each day until you find the maximum tolerated dose, orally; the maximum dose for now is 300 mg 3 times a day. valacyclovir 1 gram tablet 1,000 mg PO PRN PRN (Reason: Outbreak) anastrozole 1 mg Tablet 1 mg PO DAILY Qty: 90 3RF calcium carbonate [Calcium 600] 600 mg calcium (1,500 mg) Tablet 1,200 mg PO DAILY cholecalciferol (vitamin D3) [Vitamin D3] 50 mcg (2,000 unit) Capsule 2,000 unit PO DAILY metoprolol succinate 25 mg tablet extended release 24 hr 25 mg PO DAILY Patient Comments: Takes at bedtime Discontinued acetaminophen [Tylenol Extra Strength] 500 MG tablet 1,000 mg PO PRN PRN (Reason: Pain) Qty: 0 Follow up/Referrals: Meir Mcgrath MD [Physician] - (Two weeks as scheduled) Leon Giron DO [Primary Care Provider] - Activity Restrictions/Additional Instructions: Limit bending, twisting, lifting Diet/Activity/Treatments Diet: Diet as Tolerated Activity: Limit bending, twisting, lifting Cold/Heat Therapy: Apply ice to area as needed Skin/Wound/Dressing Care Report to your healthcare provider any signs of infection, such as:: chills, fever, night sweats, increased pain, unusual drainage and unusual redness Dressing: Keep dressing clean and dry Visit Report/Discharge Packet Instructions: DI for Prescription Opioid Use, DI for Transforaminal Lumbar Interbody Fusion Stand Alone Forms: Patient Portal/API, Stroke Signs & Symptoms Discharge Data Primary Care Provider: Leon Giron VTE Deep Vein Thrombosis/Pulmonary Embolism Present on Admission: No
[2022-11-07] MEDS: GABAPENTIN 100 MG CAPSULE 200 MG PO (12:03)
--- NOTE | 2022-11-07 13:23 | CM.DANOTE ---
Initial DCP Assessment Note Pt is a 57 yo female, resident of [place], now POD#[address] Mcgrath PCP: Leon Giron Payer: [place] Reviewed chart, pt discussed in multidisciplinary rounds this morning. PT currently recommending SNF vs Home w26/10 and HH PT r/t patient's pain and slow progress this morning Met w/patient to introduce self and role. Patient explains she plans to discharge tomorrow w/assistance from a friend who also agreed to transport patient home. Patient's daughter lives w/her and just had a baby. Spouse works director multimedia CM team will plan to follow closely. 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 No History Provided By Patient,Medical Record Prior Living Arrangements House Household Members spouse Type of transporation used prior to Drives own vehicle admit Independent with ADL's Yes: Poor activity tolerance furniture walks Is patient alert and oriented? Yes Comment PT= SNF vs Home 26/10 assist and HHPT Insurance: [place] Barriers to Discharge Yes Comment Pain, poor planning Discharge Plan Home Transportation Arrangement TBD Additional Comment Following closely. Patient is planning on returning home tomorrow with a friend to transport her home and stay to assist
--- NOTE | 2022-11-07 15:41 | PT-IP ANOTE ---
checked on pt for PT pm session and pt refused PT. stated that she has a lot of pain . confirmed caregiver training for tomorrow and stated that her friend is not available. stated that her KARI might be able to assist. informed pt that if he wants us to do caregiver training with him, pt has to be comfortable on assisting her with her with toileting needs as pt is needing assist with that as well. pt then stated no. agreed to cancel caregiver training and informed regarding SNF rehab at this time and agreed but will continue to assess progress. case management informed.
[2022-11-07] MEDS: GABAPENTIN 100 MG CAPSULE 300 MG PO (21:30)
[2022-11-07] MEDS: ANASTROZOLE 1 MG TABLET PO (21:31)
[2022-11-07] MEDS: SENNOSIDES 8.6 MG TABLET 17.2 MG PO (21:31)
[2022-11-07] MEDS: ATORVASTATIN 20 MG TABLET 10 MG PO (21:32)
[2022-11-07] MEDS: METOPROLOL ER 25 MG TABLET PO (21:33)
[2022-11-08] VITALS (8 sets, daily range): BP systolic 99–123; BP diastolic 49–70; PULSE 73–82; RESP 16–18; TEMP 36.3–37.6; O2SAT 93–96
[2022-11-08] MEDS: OXYCODONE IR 10 MG TABLET PO ×4 (01:05→20:39)
[2022-11-08] MEDS: hydrOXYzine pamoate 25 MG CAPSULE PO ×4 (01:06→20:53)
[2022-11-08] MEDS: CALCIUM CARBONATE 500 MG TAB 1000 MG PO (08:37)
[2022-11-08] MEDS: DOCUSATE 100 MG CAPSULE PO ×2 (08:38→20:40)
[2022-11-08] MEDS: hydroCHLOROthiazide 25 MG TABLET PO (08:38)
[2022-11-08] MEDS: CHOLECALCIFEROL (VITAMIN D3) 1,000 UNIT TABLET 2000 UNIT PO (08:38)
[2022-11-08] MEDS: FLUoxetine 20 MG CAPSULE PO ×2 (08:38→20:40)
--- NOTE | 2022-11-08 10:42 | PM.PNPO.1 ---
Subjective Subjective Interval history: Patient states she is doing much better in regards to pain control today compared to yesterday. Has yet to get up with physical therapy. But was able to get up to a bedside commode with some help. Exam Vital Signs (past 8 hours): - 11/08/22 05:35 11/08/22 08:33 11/08/22 07:00 Temperature 99.6 F 98.4 F Pulse Rate 76 73 Respiratory Rate 16 18 Blood Pressure 110/58 L 99/49 L Pulse Oximetry 94 94 94 Oxygen Delivery Method Room Air Oxygen Flow Rate 0 0 0 Fraction of Inspired Oxygen 24 SaO2/FiO2 Ratio 416 Oxygen Delivery Method Room Air Oxygen Flow Rate 0 Narrative Exam Narrative: Patient's dressing is clean and dry. Positive dorsiflexion and plantar flexion of the toes and ankles. 5/5 strength in dorsiflexion and plantar flexion. Nontender to palpation to the posterior aspect of both calves. [facility] Medical History Anesthesia Anxiety Arthritis Breast cancer, right breast Chronic low back pain with left-sided sciatica Depression Depression with anxiety Diverticulitis Ductal carcinoma in situ of right breast Essential hypertension (03/19/16) Graves' disease Hearing impaired History of COVID-19 (04/2021) History of Graves' disease HLD (hyperlipidemia) HTN (hypertension) Hx of migraine headaches Hyperlipidemia Hyperthyroidism Labial cyst Mild sleep apnea MINOR on CPAP Osteopenia Surgical History History of lumpectomy (1997) History of surgery (02/17/22) Hx of colonoscopy (2021) Hx of colonoscopy with polypectomy (~2010) Status post breast reduction (2013) Status post right breast lumpectomy (01/06/22) Status post tubal ligation (1999) Family History Brother Age: 61 Bipolar 1 disorder Schizophrenia Mother Age: 86 Hypertension Sister Age: 60 Bipolar 1 disorder Social History household members: spouse Smoking Status: Former smoker Tobacco: How many years used: 34 second hand exposure: No alcohol intake: current substance use type: does not use Assessment & Plan Post-op Postoperative Procedures: Procedures Operation Date: 11/06/22 07:45 come back Actual Procedure Side Surgeon p L4-5 TLIF Meir Mcgrath MD Postoperative day: 2 Postoperative status: doing well Postoperative plan: routine post-op care Postoperative plan narrative: Patient making improvements status post surgery. But not quite ambulating well enough to be discharged home today. We will reassess tomorrow and decide on either discharged home or rehab placement due to the fact that she has little to no help at home. Quality VTE Deep Vein Thrombosis/Pulmonary Embolism Present on Admission: No
[2022-11-08] MEDS: GABAPENTIN 100 MG CAPSULE 200 MG PO (12:37)
[2022-11-08] MEDS: METOPROLOL ER 25 MG TABLET PO (20:39)
[2022-11-08] MEDS: polyethylene glycoL 3350 17 GM POWD.PACK PO (20:39)
[2022-11-08] MEDS: GABAPENTIN 100 MG CAPSULE 300 MG PO (20:39)
[2022-11-08] MEDS: SENNOSIDES 8.6 MG TABLET 17.2 MG PO (20:40)
[2022-11-08] MEDS: ATORVASTATIN 20 MG TABLET 10 MG PO (20:53)
[2022-11-08] MEDS: ANASTROZOLE 1 MG TABLET PO (20:53)
[2022-11-09 00:37] VITALS: BP 111/54; PULSE 76
[2022-11-09] MEDS: OXYCODONE IR 10 MG TABLET PO ×2 (04:19→09:02)
[2022-11-09 05:01] VITALS: BP 106/51; PULSE 68; RESP 16; TEMP 36.6; O2SAT 94
[2022-11-09 07:00] VITALS: O2SAT 95
[2022-11-09 08:00] VITALS: BP 107/50; PULSE 69; RESP 16; TEMP 36.7; O2SAT 95
[2022-11-09] MEDS: CALCIUM CARBONATE 500 MG TAB 1000 MG PO (08:22)
[2022-11-09] MEDS: FLUoxetine 20 MG CAPSULE PO (08:23)
[2022-11-09] MEDS: hydroCHLOROthiazide 25 MG TABLET PO (08:23)
[2022-11-09] MEDS: CHOLECALCIFEROL (VITAMIN D3) 1,000 UNIT TABLET 2000 UNIT PO (08:23)
[2022-11-09] MEDS: DOCUSATE 100 MG CAPSULE PO (08:34)
--- NOTE | 2022-11-09 08:43 | P.DS_ITS ---
History of Present Illness History of Present Illness Date Patient Seen: 11/09/22 Time Patient Seen: 08:43 Chief complaint: Back pain Narrative: Patient is resting in bed this morning. She states she is having some mild back pain and cramping in the back and bilateral hips. She states she has less pain today than yesterday. Denies fever, chills, nausea, vomiting. Looking forward to going home today is PT goes well. Discharge Providers Provider Date of admission: 11/06/22 06:26 Discharge Date: 11/09/22 Primary care physician: Leon Giron DO Consults: 11/06/22 11:26 Consult to Occupational Therapy Evaluate & Treat Comment: Physician Instructions: Evaluate and treat Consult to Physical Therapy Evaluate & Treat Comment: Physician Instructions: Evaluate and Treat Discharge provider: Cinthya Mayes PA-C Summary Hospital Course Discharge Diagnosis: S/p TLIF Hospital Course: Operative Date/Time/Diagnoses Date of procedure: 11/06/22 Time of procedure: 07:40 Pre-op diagnosis: 1. L4-5 spondylolisthesis 2. L4-5 spinal stenosis with neurogenic claudication Post-op diagnosis: same Procedure & Clinicians Procedure: 1. L4-5 Postero-lateral and posterior interbody fusion 2. L4-5 interbody cage placement. 3. L4-5 decompressive laminectomy with bilateral facetecomies 4. L4-5 Posterior non-segmental instrumentation 5. [place] of bone marrow from iliac crest 6. Utilization of microsurgical technique and operating microscope Same procedure as scheduled: Yes Indications: Patient has been having chronic back pain and worsening lumbar radiculopathy and symptoms of neurogenic claudication. Patient failed multiple conservative management with worsening pain weakness and numbness in her lower extremity.? Patient has been having difficulty performing activity of daily living.? After discussing risks benefits of treatment options, patient elected proceed with surgery. Surgeon: Meir Mcgrath Poured Concrete Wall Technician: Leon Harden Click Yes if Unassisted: No Anesthesia Type: General Operative Notes Closure Type: primary Specimen(s): none sent Prosthetic devices, grafts, tissues, transplants, or devices: Globus revolve screws, Rise cage Estimated Blood Loss (mL): 50 Blood products transfused: none Exam Vital Signs (past 8 hours): - 11/09/22 05:01 11/09/22 07:00 11/09/22 08:00 Temperature 97.9 F 98.1 F Pulse Rate 68 69 Respiratory Rate 16 16 Blood Pressure 106/51 L 107/50 L Pulse Oximetry 94 95 95 Oxygen Delivery Method Room Air Oxygen Flow Rate 0 0 0 Fraction of Inspired Oxygen 24 SaO2/FiO2 Ratio 416 Oxygen Delivery Method Room Air Oxygen Flow Rate 0 Narrative Exam Narrative: Pleasant 57 year old female. Awake, alert, and oriented. Intraoperative lumbar dressing CDI. Strength and sensation intact to bilateral lower extremities. Bilateral calves soft, compressible, nontender to palpation. [facility] Medical History Anesthesia Anxiety Arthritis Breast cancer, right breast Chronic low back pain with left-sided sciatica Depression Depression with anxiety Diverticulitis Ductal carcinoma in situ of right breast Essential hypertension (03/19/16) Graves' disease Hearing impaired History of COVID-19 (04/2021) History of Graves' disease HLD (hyperlipidemia) HTN (hypertension) Hx of migraine headaches Hyperlipidemia Hyperthyroidism Labial cyst Mild sleep apnea MINOR on CPAP Osteopenia Surgical History History of lumpectomy (1997) History of surgery (02/17/22) Hx of colonoscopy (2021) Hx of colonoscopy with polypectomy (~2010) Status post breast reduction (2013) Status post right breast lumpectomy (01/06/22) Status post tubal ligation (1999) Family History Brother Age: 61 Bipolar 1 disorder Schizophrenia Mother Age: 86 Hypertension Sister Age: 60 Bipolar 1 disorder Social History household members: spouse Smoking Status: Former smoker Tobacco: How many years used: 34 second hand exposure: No alcohol intake: current substance use type: does not use Discharge Assessment & Plan Assessment and Plan Assessment: Patient is progressing as expected after one-level TLIF 3 days ago. Plan of Treatment: Continue multimodal pain regimen as needed. No deep bending, twisting, or lifting over 10 pounds. Discharge Plan Discharge Plan Patient Disposition: Home Provider Discharge Comment: DC to home if safe/cleared by PT Discharge orders & Medications Prescriptions: New acetaminophen 325 mg Tablet 650 mg PO Q6H PRN (Reason: Fever/Mild Pain (1-3)) Qty: 60 0RF docusate sodium 100 mg Capsule 100 mg PO BID Qty: 10 0RF hydroxyzine pamoate 25 mg Capsule 25 mg PO Q4HR PRN (Reason: Nausea And Vomiting) Qty: 20 0RF oxycodone 5 mg tablet 5 mg PO Q4H PRN (Reason: pain) Qty: 60 0RF Continued hydrochlorothiazide 25 mg tablet See Rx Instructions .ROUTE .COMPLEX Qty: 90 0RF Dose Instruction: TAKE 1 TABLET BY MOUTH EVERY DAY Rx Instructions: TAKE 1 TABLET BY MOUTH EVERY DAY- fluoxetine 20 mg capsule 20 mg PO BID Qty: 180 3RF atorvastatin 10 mg tablet 10 mg PO BEDTIME Qty: 90 3RF gabapentin 100 mg capsule See Rx Instructions PO .COMPLEX Qty: 810 0RF Patient Comments: Pt takes 200mg each afternoon, 300mg @HS Rx Instructions: Start with 1 capsule on day 1 at bedtime, add another capsule each day until you find the maximum tolerated dose, orally; the maximum dose for now is 300 mg 3 times a day. valacyclovir 1 gram tablet 1,000 mg PO PRN PRN (Reason: Outbreak) anastrozole 1 mg Tablet 1 mg PO DAILY Qty: 90 3RF calcium carbonate [Calcium 600] 600 mg calcium (1,500 mg) Tablet 1,200 mg PO DAILY cholecalciferol (vitamin D3) [Vitamin D3] 50 mcg (2,000 unit) Capsule 2,000 unit PO DAILY metoprolol succinate 25 mg tablet extended release 24 hr 25 mg PO DAILY Patient Comments: Takes at bedtime Discontinued acetaminophen [Tylenol Extra Strength] 500 MG tablet 1,000 mg PO PRN PRN (Reason: Pain) Qty: 0 Follow up/Referrals: Meir Mcgrath MD [Physician] - (Two weeks as scheduled) Leon Giron DO [Primary Care Provider] - Activity Restrictions/Additional Instructions: Limit bending, twisting, lifting Diet/Activity/Treatments Diet: Diet as Tolerated Activity: Limit bending, twisting, lifting Cold/Heat Therapy: Apply ice/heat to area as needed Skin/Wound/Dressing Care Report to your healthcare provider any signs of infection, such as:: chills, fever, night sweats, increased pain, unusual drainage and unusual redness Dressing: Keep dressing clean and dry Visit Report/Discharge Packet Instructions: DI for Prescription Opioid Use, DI for Transforaminal Lumbar Interbody Fusion Stand Alone Forms: Patient Portal/API, Stroke Signs & Symptoms, Surgery Discharge Discharge Data Primary Care Provider: Leon Giron VTE Deep Vein Thrombosis/Pulmonary Embolism Present on Admission: No
--- NOTE | 2022-11-09 09:50 | PT.IPTN ---
Current Diagnoses Spondylolisthesis, lumbar region (11/06/22) Spinal stenosis, lumbar region with neurogenic claudication (11/06/22) Surgery Performed Operation Date: 11/06/22 07:45 Actual Procedures p L4-5 TLIF - Meir Mcgrath MD Physical Therapy Treatment Note M2 PT-IP Current Condition Start: 11/06/22 15:24 Freq: NEEDED Status: Active Protocol: Document 11/07/22 10:15 AB (Rec: 11/07/22 12:52 AB [id number]) Physical Therapy Current Condition Current Condition Evaluation Date 11/07/22 Treatment Diagnosis s/p L4-5 TLIF; difficulty in walking Onset Date 11/06/22 M3 PT-IP Subjective Start: 11/06/22 15:24 Freq: NEEDED Status: Active Protocol: Document 11/09/22 10:15 TS (Rec: 11/09/22 10:34 TS [id number]) Subjective Physical Therapy Visit Type Type Treatment Note Visit Start Time 09:50 Visit Stop Time 10:12 Total Visit Minutes 22 Notes Friend present for caregiver training. Number of ROAD MANAGER Visits 1 Physical Therapy Visit Comments Patient Comments Pt reports feeling better this morning, c/o pain in low back and therese into hips, requested to enrique toilet, agreeable to PT . Therapy Pain Assessment Pain When Pain Assessed During Mobility Pain Present Pain Present Pain Reported M4 PT-IP Mobility and Gait Start: 11/06/22 15:24 Freq: NEEDED Status: Active Protocol: Document 11/09/22 10:15 TS (Rec: 11/09/22 10:34 TS [id number]) PT-Bed Mobility Assessment Rolling Type of Rolling Log Rolling Level of Assist Standby Assistance Supine to Sit Supine to Sit Standby Assistance Sit to Supine Sit to Supine Standby Assistance Scooting Scooting to Edge of Bed Standby Assistance PT-Transfer Assessment Sit to and From Stand Sit to and from Stand Standby Assistance,1 Person Assistance,Use of Upper Extremities Equipment Transfer Assistive Device Gait Belt,Front Wheeled Walker Orthotic/Prosthetic Devices or Brace: No Comments Mobility Comments Pt found resting in bed on L side, agreeable to PT. Supine to sit SBA, pt demonstrated good carryover of sequencing, did not require cues. She performed sit to stand SBA with BUE support on FWW. She ambulated to toilet ~10' SBA with FWW with a slow step to gait. Sit to stand from toilet SBA with use of grab bar, friend arrived when washing hands in sink. Pt ambulated ~ 75' CGA from caregiver, has a slow step to gait with minimal feet clearnace and step length, instructed caregiver in use of gait belt. Sit to supine into bed SBA, pt demonstrated good carryover. Pt was left in bed with call light nearby, friend in room, RN noitified. Gait Assessment Gait Gait Assistance Required: Standby Assistance,Contact Guard Assist Distance (Feet) 85 Able to Maintain Weight Bearing Status Yes During Gait Assistive Devices Assistive Device Gait Belt,Front Wheeled Walker Orthotic/Prosthetic Devices or Brace: No Gait Deviations General Gait Pattern Decreased Stride Length, Decreased Feet Clearance,Step- to Gait Factors Limiting Gait Function Factors Limiting Gait Function Decreased Activity Tolerance, Limited Range of Motion,Pain, Poor Balance Comments Gait Comments See mobility comments. PT-Balance Assessment Sitting Balance and Reactions Static Sitting Balance Ability Good Dynamic Sitting Balance Ability Good Standing Balance and Reactions Static Standing Balance Ability Good Dynamic Standing Balance Ability Good M5 PT-IP Objective Assessments Start: 11/06/22 15:24 Freq: NEEDED Status: Active Protocol: Document 11/07/22 10:15 AB (Rec: 11/07/22 12:52 AB [id number]) Orientation Orientation/Cognition Level of Alertness Alert Orientation Name,Place,Situation Language Function Ability No Deficits Noted Safety Awareness Decreased Safety Awareness Memory Description Short Term Impaired Gross Range of Motion Lower Extremity ROM Assessment Within Functional Limits Strength Lower Extremity Strength Assessment Left Impaired Hip 3+/5 Knee 3+/5 Sensation Assessment Sensation Gross Sensation Right UE Impaired,Left UE Impaired Sensation Description Tingling Comments Sensation Comments stated that she has chronic finger numbness on B hands Muscle Tone Muscle Tone WNL Yes M6 PT-IP Treatment Start: 11/06/22 15:24 Freq: NEEDED Status: Active Protocol: Document 11/09/22 10:15 TS (Rec: 11/09/22 10:34 TS [id number]) Physical Therapy Treatment Education Education Provided Precautions,Weight Bearing Status,Post-Op Packet,Safety M7 PT-IP Assessment and Plan Start: 11/06/22 15:24 Freq: NEEDED Status: Active Protocol: Document 11/09/22 10:15 TS (Rec: 11/09/22 10:34 TS [id number]) PT Summary Assessment and Plan Potential Rehabilitation Potential Good Summary Impairments Pain,ROM,Strength,Balance, Coordination,Sensation,Tone, Cognition,Bed Mobility, Transfers,Gait,Activity Tolerance Progress Towards Goals Progressing Toward Goals Assessment Summary Pt is progressing well with her mobility this session. She performed all bed mobility SBA and demonstrated good carryover of sequencing. She progressed her gait to ~85' SBA/CGA with a slow step to gait with FWW. Pt does not require cueing mobility and recalled 3/3 spinal precautions. Caregiver was instructed/educated on use of gait, bed mobility and pt's spinal precautions. PT is recommending return home with assist from friend/family. Goals Bed Mobility Goal Minimal Assistance Transfer Goal Minimal Assistance,Front Wheeled Walker Gait Goal Minimal Assistance,Front Wheel Walker Gait Distance 100 Other Goals improve bed mobility, transfers and ambulation using FWW 150 ft SBA Days to Meet Goals 10 Frequency of Treatment Frequency Of Treatment Twice a Day Precautions Lumbar Precautions Log Roll,No Twisting,Limit Bending,Lifting Restriction of 10 lbs,Gait Belt above Incisional Area Recommendations To Nursing Amount of Assist Needed Standby Assistance Discharge Recommendations PT Discharge Recommendations Home with Assistance Transportation Needs at Discharge Private Vehicle
--- NOTE | 2022-11-09 10:48 | OT.IP.EVAL ---
Current Diagnoses Spondylolisthesis, lumbar region (11/06/22) Spinal stenosis, lumbar region with neurogenic claudication (11/06/22) Surgery Performed Operation Date: 11/06/22 07:45 Actual Procedures p L4-5 TLIF - Meir Mcgrath MD Past Medical History (Last Reviewed 11/09/22 @ 08:53 by Cinthya Mayes PA-C) Anesthesia Anxiety Arthritis Breast cancer, right breast Chronic low back pain with left-sided sciatica Depression Depression with anxiety Diverticulitis Ductal carcinoma in situ of right breast Essential hypertension (03/19/16) Graves' disease Hearing impaired History of COVID-19 (04/2021) History of Graves' disease HLD (hyperlipidemia) HTN (hypertension) Hx of migraine headaches Hyperlipidemia Hyperthyroidism Labial cyst Mild sleep apnea MINOR on CPAP Osteopenia Surgical History (Last Reviewed 11/09/22 @ 08:53 by Cinthya Mayes PA-C) History of lumpectomy (1997) History of surgery (02/17/22) Hx of colonoscopy (2021) Hx of colonoscopy with polypectomy (~2010) Status post breast reduction (2013) Status post right breast lumpectomy (01/06/22) Status post tubal ligation (1999) Occupational Therapy Inpatient Evaluation/Re-Eval M1 PT/OT-IP Prior Functional Status Start: 11/06/22 15:24 Freq: NEEDED Status: Active Protocol: Document 11/09/22 12:04 CGR (Rec: 11/09/22 12:17 CGR [id number]) Medical Review Prior Functional Status Medical History Reviewed Yes Communication able to make needs known Mobility and Gait pt stated that she is modified independent with all mobilities and ambulation without AD but tends to furniture walk Activities of Daily Living and IADL's Pt states that she was IND in all ADLs and IADLs at baseline but family members tend to do all of the cooking and cleaning. 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 Additional Social History Comment stated that her spouse works the whole day; daughter at home with her for now until january with her spouse but daughter just had a baby and cannot assist her as well stated that her friend may be able to stay with her and assist her M2 OT-IP Current Condition Start: 11/09/22 12:04 Freq: Status: Active Protocol: Document 11/09/22 12:04 CGR (Rec: 11/09/22 12:17 CGR [id number]) Occupational Therapy Current Condition Current Condition Evaluation Date 11/09/22 Treatment Diagnosis L4-5 TLIF Diagnosis Onset Date 11/06/22 Post Operative Precautions Lumbar Precautions Log Roll,No Twisting,Limit Bending,Lifting Restriction of 10 lbs,Gait Belt above Incisional Area M3 OT- IP Subjective and Pain Start: 11/09/22 12:04 Freq: Status: Active Protocol: Document 11/09/22 12:04 CGR (Rec: 11/09/22 12:17 CGR [id number]) OT- Subjective Occupational Therapy Visit Type Type Initial Evaluation Visit Start Time 10:12 Visit Stop Time 10:48 Total Visit Minutes 36 OT Pain Assessment Pain When Pain Assessed At Rest Pain Present Pain Present Pain Reported Location Lower Back Intensity 7 Scale Used Numeric (0 - 10) Management Techniques Distraction,Modification of Treatment,Re-positioning, Timing of Activity with Medications M4 OT- IP ADL's Start: 11/09/22 12:04 Freq: Status: Active Protocol: Document 11/09/22 12:04 CGR (Rec: 11/09/22 12:17 CGR [id number]) OT [id number] Comments OT Self-Feeding Comments not meal time OT ADL-Grooming General Evaluation Grooming Ability Standby Assistance Areas Needing Assistance Face Washing Comments OT Grooming Comments standing at sink OT ADL-Oral Care General Eval Oral Care Ability Standby Assistance Areas of Assistance Brushing Teeth,Retrieving/Set- Up of Items Comments Oral Care Comments standing at sink OT ADL-Dressing Comments OT Dressing Comments Educated on LB dressing minimally but pt states that she will have assist with dressing if needed. Recommended pt get a sample card maker. OT ADL-Toileting General Evaluation Toileting Ability Standby Assistance Comments OT Toileting Comments simulated seated on toielt. OT ADL-Bathing Comments OT Bathing Comments not performed M5 OT- IP IADL's Start: 11/09/22 12:04 Freq: Status: Active Protocol: Document 11/09/22 12:04 CGR (Rec: 11/09/22 12:17 CGR [id number]) OT-Instrumental Activities of Daily Living Deficits IADL Deficits Identified No Deficits Home Safety Awareness Awareness of Need for Assistance at Home Good Awareness Ability to Problem Solve Emergency Able to Problem Solve Situations Medication Management Medication Management No Deficits Identified Money Management Money Management No Deficits Identified Meal Preparation Meal Preparation Caregiver Provides Assist Line Driver Line Driver Caregiver Provides Assist Driving Driving Comments 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 M6 OT- IP Functional Cognition Start: 11/09/22 12:04 Freq: Status: Active Protocol: Document 11/09/22 12:04 CGR (Rec: 11/09/22 12:17 CGR [id number]) Cognitive Factors Limiting Selfcare Function Cognitive Ability Level of Alertness Alert Patient Orientation Name,Age,Birthday,Month,Date, Year,Day of Week,Place, Situation Attention Span Ability Capable of Focused Attention, Capable of Sustained Attention Ability to Follow Commands Able to Follow One Step Commands with Increased Time, Able to Follow One Step Commands with Repetition OT- Vision and Hearing OT- Hearing Assessment OT- Hearing Assessment WFL OT- Vision Assessment Visual Acuity Glasses For Reading Visual Attentiveness WFL Occular Pursuits WFL Visual Convergence WFL M7 OT- IP Mobility and Balance Start: 11/09/22 12:04 Freq: Status: Active Protocol: Document 11/09/22 12:04 CGR (Rec: 11/09/22 12:17 CGR [id number]) OT- Bed Mobility Assessment Rolling Type of Rolling Log Rolling,Roll to Left Level of Assistance Independent Supine to Sit Supine to Sit Assist Independent Sit to Supine Sit to Supine Assist Independent Scooting Scooting to Edge of Bed Independent OT-Transfer Assessment Sit to and From Stand Sit to and from Stand Standby Assistance Transfers Transfer Ability Standby Assistance Technique Transfer Destination Bed,Toilet Transfer Technique Stand Step Pivot Devices Transfer Assistive Devices Gait Belt,Front Wheeled Walker OT- Gait Assessment Gait Gait Assistance Required: Standby Assistance Assistive Devices Assistive Device Gait Belt,Front Wheeled Walker OT- Balance Assessment Sitting Balance and Reactions Static Sitting Balance Ability Normal Dynamic Sitting Balance Ability Normal M8 OT- IP Objective Assessments Start: 11/09/22 12:04 Freq: Status: Active Protocol: Document 11/09/22 12:04 CGR (Rec: 11/09/22 12:17 CGR [id number]) OT Gross Range of Motion Upper Extremity Range of Motion Assessment Within Functional Limits OT Strength Upper Extremity Strength Assessment Within Functional Limits OT- Coordination Assessment Upper Extremity Finger to Nose Test Within Functional Limits Finger Tapping Test Within Functional Limits OT-Muscle Tone Assessment Muscle Tone WNL Yes OT Sensation Assessment Edema Edema Absent M9 OT- IP Assessment and Plan Start: 11/09/22 12:04 Freq: Status: Active Protocol: Document 11/09/22 12:04 CGR (Rec: 11/09/22 12:17 CGR [id number]) OT Summary Assessment and Plan Potential Rehabilitation Potential Excellent Analytic Complexity at Evaluation Low Summary OT Impairments Pain,Balance,Functional Mobility,Grooming,Dressing, Toileting,Bathing,Toilet Transfers,Shower Transfers, Activity Tolerance Progress Towards Goals Progressing Toward Goals Assessment Summary Pt presents as a low complexity evaluation s/p admit for L4-5 TLIF. Pt is progressing well and is ready for discharge home with family support. Pt would benefit from continued OT services for LB dressing training and home safety. Goals Dressing Goal Independent,Senior Clinical Data Analyst,Sock Aid Bathing Goal Independent Toilet Transfer Goal Independent Shower Transfer Goal Independent Days to Meet Goals 2 Frequency of Treatment Frequency Of Treatment Once a Day Treatment Plan OT Treatment Plan ADL Training,Functional Mobility,Patient/Family Education,Discharge Planning Discharge Recommendations OT Discharge Recommendations Home with Assistance Transportation Needs at Discharge Private Vehicle
[2022-11-09] MEDS: hydrOXYzine pamoate 25 MG CAPSULE PO (11:36)
[2022-11-09] MEDS: GABAPENTIN 100 MG CAPSULE 200 MG PO (11:36)
--- NOTE | 2022-11-09 11:42 | CM.DPC ---
DCP Discharge Home Per Ortho PA, pt's pain now better managed and medically stable to d/c home today after PT and CG training. Per EDUCATION DEAN, pt make significant progress and was able to do bed mobility and ambulation with SBA to CGA and CG arrived and participated in CG training and recommending safe d/c home with family/CG assist. Per RN, no concerns noted at this time. Plan: Patient to d/c home today via friend POV and assist and outpt f/u with Ortho after discharge. No further SW needs at this time. Nishi Murcia MSW
== END 2022-11-09 11:40 | disposition home or self-care (01) | DRG 455 ==
PROVIDERS: Admitting Provider Orthopaedic Surgery Orthopaedic Surgery of the Spine; PCP Family Medicine; Referring Provider Orthopaedic Surgery Orthopaedic Surgery of the Spine; Visit Provider Orthopaedic Surgery Orthopaedic Surgery of the Spine
PROC: 0SG00AJ Fusion of Lumbar Vertebral Joint with Interbody Fusion Device, Posterior Approach, Anterior Column, Open Approach (ICD-10-PCS; principal; 2022-11-06 07:45)
DX: M43.16 Spondylolisthesis, lumbar region (principal); M48.062 Spinal stenosis, lumbar region with neurogenic claudication; E78.5 Hyperlipidemia, unspecified; I10 Essential (primary) hypertension; F32.A Depression, unspecified; C50.911 Malignant neoplasm of unspecified site of right female breast; Z87.891 Personal history of nicotine dependence
CPT/HCPCS: 72100; 76000; 94760; 97162; 97165; 97530; 97535; C1713; C9290; J0131; J0171; J0330; J0690; J1100; J1170; J2250; J2405; J2704; J3010; J3410

== ENCOUNTER 2023-04-10 16:20 | Emergency (ER) | payer OTHER, SELFPAY ==
[2022-11-06 11:44] VITALS: BMI 31.7
[2023-04-10 16:27] VITALS: BP 163/84; PULSE 77; RESP 16; TEMP 36.6; O2SAT 96; BMI 32.8
--- NOTE | 2023-04-10 17:27 | ED_ITS ---
HPI - URI/Sore Throat <Vito Arriaga PA-C - Last Filed: 04/10/23 18:16> General Chief Complaint: Upper Respiratory Symptoms Stated Complaint: Respiratory illness since Wednesday... Head ache Time Seen by Provider: 04/10/23 16:40 Source: patient Mode of arrival: Ambulatory History of Present Illness HPI Narrative: This is a 57-year-old female presents emergency department due to a scalp lesion causing her some pain as well as 2 days of upper respiratory infection symptoms such as sinus congestion, runny nose, cough. Denies any fevers or any other concerning signs or symptoms. States that the lesions to her scalp was causing her some pain. Related Data Home Medications Medication Instructions Recorded Confirmed valacyclovir 1 gram tablet 1,000 mg PO PRN PRN Outbreak 01/01/22 02/04/23 calcium carbonate 600 mg calcium 1,200 mg PO DAILY Breast Cancer 10/23/22 02/04/23 (1,500 mg) tablet (Calcium) cholecalciferol (vitamin D3) 50 2,000 unit PO DAILY Breast Cancer 10/23/22 02/04/23 mcg (2,000 unit) capsule (Vitamin D3) Previous Rx's Medication Instructions Recorded anastrozole 1 mg tablet 1 mg PO DAILY breast cancer #90 05/18/22 tabs fluoxetine 20 mg capsule 20 mg PO BID #180 caps 12/09/22 atorvastatin 10 mg tablet 10 mg PO BEDTIME #90 tabs 02/17/23 hydrochlorothiazide 25 mg tablet See Rx Instructions .Route 03/01/23 .COMPLEX #90 tabs metoprolol succinate 25 mg See Rx Instructions .Route 04/02/23 tablet,extended release 24 hr .COMPLEX #90 tabs Allergies Allergy/AdvReac Type Severity Reaction Status Date / Time No Known Drug Allergies Allergy Verified 11/06/22 06:51 Review of Systems <Vito Arriaga PA-C - Last Filed: 04/10/23 18:16> Review of Systems Narrative: GENERAL: Denies chills, fatigue, malaise, fever, sweats. HEENT: Reports head pain, cough, sinus congestion Denies sinus pain, ear pain, sore throat, difficulty swallowing, dizziness. RESPIRATORY: Denies dyspnea, cough, wheezing, hemoptysis, sputum. CARDIOVASCULAR: Denies chest pain, palpitations, orthopnea, edema, GASTROINTESTINAL: Denies nausea, vomiting, abdominal pain, diarrhea, constipation, melena. : Denies dysuria, frequency, incontinence, hematuria, urinary retention. MUSCULOSKELETAL: denies weakness, joint pain, or bony pain SKIN: Denies rash, skin lesions, or other NEUROLOGIC: Denies weakness, headache, numbness, change in speech, confusion, seizures, incoordination. PSYCHIATRIC: No concerning psychosocial issues. 12 point review of systems is negative except for those stated above Patient History <Vito Arriaga PA-C - Last Filed: 04/10/23 18:16> Medical History (Updated 04/10/23 @ 18:16 by Vito Arriaga PA-C) History of COVID-19 (04/2021) Osteopenia Labial cyst Ductal carcinoma in situ of right breast Chronic low back pain with left-sided sciatica Hx of migraine headaches Hyperthyroidism Graves' disease Arthritis Depression Anxiety MINOR on CPAP HTN (hypertension) HLD (hyperlipidemia) Diverticulitis Anesthesia Hearing impaired Mild sleep apnea Breast cancer, right breast Depression with anxiety Essential hypertension (03/19/16) History of Graves' disease Hyperlipidemia Surgical History Hx of colonoscopy (2021) Hx of colonoscopy with polypectomy (~2010) History of surgery (02/17/22) Status post right breast lumpectomy (01/06/22) Status post breast reduction (2013) History of lumpectomy (1997) Status post tubal ligation (1999) Family History Brother Age: 62 Bipolar 1 disorder Schizophrenia Mother Age: 87 Hypertension Sister Age: 61 Bipolar 1 disorder Social History household members: spouse Smoking Status: Former smoker Tobacco: How many years used: 34 second hand exposure: No alcohol intake: current substance use type: does not use Smoking Status: Former smoker alcohol intake frequency: a few times a week Substance Use Type: does not use Exam <Vito Arriaga PA-C - Last Filed: 04/10/23 18:16> Narrative Exam Narrative: GENERAL: Well-developed patient, in mild distress. HEAD: Atraumatic. Normocephalic. EYES: Pupils equal round and reactive. Extraocular motions intact. No scleral icterus. No injection or drainage. ENT: Nose without bleeding, purulent drainage. Throat without erythema, tonsillar hypertrophy or exudate. Airway patent. NECK: Trachea midline. Non tender EXTREMITIES: No edema or joint tenderness. NEURO: AOx3. SKIN: Small area of fluctuance to the posterior scalp, not erythematous or warm to the touch Initial Vital Signs Initial Vital Signs: Vital Signs Temperature 97.8 F 04/10/23 16:27 Pulse Rate 77 04/10/23 16:27 Respiratory Rate 16 04/10/23 16:27 Blood Pressure 163/84 H 04/10/23 16:27 Pulse Oximetry 96 04/10/23 16:27 Oxygen Delivery Method Room Air 04/10/23 16:27 <DO Nancy Billings Last Filed: 04/11/23 07:01> Initial Vital Signs Initial Vital Signs: Vital Signs Temperature 97.8 F 04/10/23 16:27 Pulse Rate 77 04/10/23 16:27 Respiratory Rate 16 04/10/23 16:27 Blood Pressure 163/84 H 04/10/23 16:27 Pulse Oximetry 96 04/10/23 16:27 Oxygen Delivery Method Room Air 04/10/23 16:27 Course <Vito Arriaga PA-C - Last Filed: 04/10/23 18:16> Orders Ordered: ED Orders 04/10/23 16:49 Covid-19 + FLU A/B + RSV - PCR Stat Vital Signs Vital signs: Vital Signs - 8 hr 04/10/23 16:27 Temperature 97.8 F Pulse Rate 77 Respiratory Rate 16 Blood Pressure 163/84 H Pulse Oximetry 96 Oxygen Delivery Method Room Air <DO Nancy Billings Last Filed: 04/11/23 07:01> Orders Ordered: ED Orders 04/10/23 16:49 Covid-19 + FLU A/B + RSV - PCR Stat Vital Signs Vital signs: Vital Signs - 8 hr 04/10/23 16:27 Temperature 97.8 F Pulse Rate 77 Respiratory Rate 16 Blood Pressure 163/84 H Pulse Oximetry 96 Oxygen Delivery Method Room Air MDM - URI/Sore Throat <OBI Fernandez Last Filed: 04/10/23 18:16> Lab Data Labs: Lab Results 04/10/23 Range/Units 16:49 SARS-CoV-2 (PCR) Negative (Negative) Influenza A (RT-PCR) Flu a negative (NEGATIVE) Influenza B (RT-PCR) Flu b negative (NEGATIVE) RSV (PCR) Negative (Negative) MDM Narrative Medical decision making narrative: ED course: This is a 57-year-old female presents emergency department due to viral URI symptoms for last 2 days. Vitals reassuring. COVID, influenza, and RSV testing negative. Recommended supportive care. She was also complaining of what appears to be an ingrown hair to her posterior scalp. Recommended cleaning and warm compresses as well as ibuprofen needed for any pain or discomfort. No significant erythema or evidence of significant infection that would benefit from incision and drainage. CC: URI symptoms Complicating co-morbidities: None Data collected from: Previous notes Medical records reviewed: Patient was seen here 4 years ago due to rib pain after a fall. History of depression, hypertension, Graves disease. Differential considered, but not limited to: Abscess, ingrown hair, pneumonia, COVID, influenza Exam documented above, pertinent findings include: Small palpable area of fluctuance to the posterior scalp Lab Test results independently reviewed as above. Pertinent findings: COVID, influenza, RSV negative Imaging studies independently reviewed: None Scores Used: None MIPS Elements: None Consultations: None Treatments: None Re-evaluations: None Discussion: Discussed plan with the patient was comfortable with the plan Diagnosis: Ingrown hair as well as viral URI Disposition: see below, along with detailed discharge instructions that have been reviewed with patient as well as indications for ED re-evaluation and additional outpatient follow up <Leonid Sneed, - Last Filed: 04/11/23 07:01> Lab Data Labs: Lab Results 04/10/23 Range/Units 16:49 SARS-CoV-2 (PCR) Negative (Negative) Influenza A (RT-PCR) Flu a negative (NEGATIVE) Influenza B (RT-PCR) Flu b negative (NEGATIVE) RSV (PCR) Negative (Negative) Discharge Plan Departure Patient Disposition: Home Clinical Impression: Upper respiratory infection, viral, Ingrown hair Activity Restrictions/Additional Instructions: Thank you for coming to the [facility] Emergency Department today. As we discussed your COVID, flu, RSV testing was negative. I suspect this is some other kind of viral URI which should improve over the next week or so with cough and cold [id number] medication. For the suspected ingrown hair to your scalp I recommended warm compresses as well as ibuprofen for the discomfort as well as gentle washing and cleaning. Please return to the emergency department if you develop any high fevers, chest pain, shortness of breath or any other concerning signs or symptoms. I hope you feel better soon. Please follow up with your primary care provider within a week if your symptoms continue. If you do not have a primary care provider please contact the [facility] Resource line at [phone]. They will ask some questions about your medical history and help you get set up with a provider in the community. Prescriptions: No Action fluoxetine 20 mg capsule 20 mg PO BID Qty: 180 2RF atorvastatin 10 mg tablet 10 mg PO BEDTIME Qty: 90 3RF hydrochlorothiazide 25 mg tablet See Rx Instructions .ROUTE .COMPLEX Qty: 90 1RF Dose Instruction: TAKE 1 TABLET BY MOUTH EVERY DAY Rx Instructions: TAKE 1 TABLET BY MOUTH EVERY DAY- metoprolol succinate 25 mg tablet extended release 24 hr See Rx Instructions .ROUTE .COMPLEX Qty: 90 0RF Dose Instruction: TAKE 1 TABLET BY MOUTH EVERY DAY FOR BLOOD PRESSURE Patient Comments: Takes at bedtime Rx Instructions: TAKE 1 TABLET BY MOUTH EVERY DAY FOR BLOOD PRESSURE valacyclovir 1 gram tablet 1,000 mg PO PRN PRN (Reason: Outbreak) anastrozole 1 mg Tablet 1 mg PO DAILY Qty: 90 3RF calcium carbonate [Calcium 600] 600 mg calcium (1,500 mg) Tablet 1,200 mg PO DAILY cholecalciferol (vitamin D3) [Vitamin D3] 50 mcg (2,000 unit) Capsule 2,000 unit PO DAILY Referrals: Leon Giron DO [Primary Care Provider] - Stand Alone Forms: Patient Portal/API ED Sign-out <Leonid Sneed DO - Last Filed: 04/11/23 07:01> Cosign ED Attending Cosignature Attestation: Dr Sneed Co-Sign Statement: I was available for consultation during this patient's emergency department visit. This chart is signed by myself for administrative purposes only. I did not have direct contact with this patient during this visit. They were seen independently by the APC.
[2023-04-10 17:32] LABS: Influenza A - CEPHEID Flu A NEGATIVE (NEGATIVE); Influenza B - CEPHEID Flu B NEGATIVE (NEGATIVE); Respiratory Syncytial Virus Negative (Negative)
[2023-04-10 18:02] LABS: COVID-19 CEPHEID 4-PLEX PCR Negative (Negative)
[2023-04-10 18:20] VITALS: BP 140/69; PULSE 68; RESP 16; TEMP 36.7; O2SAT 98
== END 2023-04-10 18:22 | disposition home or self-care (01) ==
PROVIDERS: Emergency Provider Physician Assistant Medical; PCP Family Medicine
DX: J06.9 Acute upper respiratory infection, unspecified (principal); L73.1 Pseudofolliculitis barbae; Z87.891 Personal history of nicotine dependence
CPT/HCPCS: 0241U; 99281; 99282

== ENCOUNTER → 2023-04-24 13:10 | Outpatient (CLI) | payer OTHER, SELFPAY ==
[2022-11-06 11:44] VITALS: BMI 31.7
--- NOTE | 2023-04-24 | DI.MRI.S_ITS ---
PROCEDURE: MR LUMBAR SPINE WO CON INDICATIONS: Spinal stenosis, lumbar region with neurogenic cla TECHNIQUE: Noncontrast sagittal T1 spin echo and T2 fast echo, sagittal STIR, and T2 fast spin echo through the lumbar spine. In cases with scoliosis, additional coronal T2 fast spin echo may be performed. COMPARISON: [facility], MR, MR LUMBAR SPINE WO CON, 07/08/2022, 16:33. FINDINGS: Image quality: Excellent. Prior surgery: Posterior and interbody surgical fusion at L4-5. Alignment and Curvature: There is normal bony alignment. Bone Marrow: Marrow is of normal overall signal. No acute vertebral body compression fractures. Spinal Cord: Conus medullaris terminates at the L2 level. Visualized cord demonstrates normal signal and size. Paraspinous Soft Tissues: 1.4 centimeter subcutaneous nodule overlying the gluteal musculature (series 7, image 34), presumably an injection granuloma. T12-L1: Normal appearance. L1-L2: Disc desiccation. Facet effusions. Mild left neural foraminal narrowing. L2-L3: Disc desiccation. Mild facet hypertrophy and small right facet effusion. Mild to moderate bilateral neural foraminal narrowing. L3-L4: Broad-based disc bulge, facet hypertrophy, right-sided facet effusion. Moderate to severe bilateral neural foraminal narrowing. L4-L5: Mild facet hypertrophy and right-sided arthrosis. Severe right and moderate to severe left neural foraminal narrowing. L5-S1: Disc desiccation mild facet hypertrophy. Moderate bilateral neural foraminal narrowing. IMPRESSION: Multilevel degenerative disc disease and facet arthrosis, without severe spinal canal narrowing. Of note, there is severe right and moderate to severe left neural foraminal narrowing at L4-5, moderate to severe neural foraminal narrowing at L3-4 and moderate bilateral neural foraminal narrowing at L5-S1. Dictated by: Arnaldo Castillo M.D. on 04/26/2023 at 9:34 Approved by: Arnaldo Castillo M.D. on 04/26/2023 at 9:42
== END ==
LOC: MRI 13:10
PROVIDERS: PCP Family Medicine; Referring Provider Orthopaedic Surgery Orthopaedic Surgery of the Spine; Visit Provider Orthopaedic Surgery Orthopaedic Surgery of the Spine
DX: M48.062 Spinal stenosis, lumbar region with neurogenic claudication (principal); M48.07 Spinal stenosis, lumbosacral region; M51.36 Other intervertebral disc degeneration, lumbar region; M47.816 Spondylosis without myelopathy or radiculopathy, lumbar region; M47.817 Spondylosis without myelopathy or radiculopathy, lumbosacral region
CPT/HCPCS: 72148

== ENCOUNTER → 2023-05-19 10:15 | Outpatient (CLI) | payer OTHER, SELFPAY ==
[2022-11-06 11:44] VITALS: BMI 31.7
--- NOTE | 2023-05-19 10:17 | DI.RAD.S_ITS ---
PROCEDURE: XR HAND LT MIN 3V INDICATIONS: hand pain TECHNIQUE: 3 views of the hand(s) acquired. COMPARISON: [facility], , XR HAND RT MIN 3V, 05/19/2023, 10:24. FINDINGS: Bones: No fractures or dislocations. Mild narrowing of the radiocarpal joint Soft tissues: No suspicious soft tissue calcifications. IMPRESSION: Mild narrowing at the radiocarpal joint Dictated by: Erwin Samayoa M.D. on 05/19/2023 at 12:37 Approved by: Erwin Samayoa M.D. on 05/19/2023 at 12:38
--- NOTE | 2023-05-19 10:17 | DI.RAD.S_ITS ---
PROCEDURE: XR HAND RT MIN 3V INDICATIONS: hand pain TECHNIQUE: 3 views of the hand(s) acquired. COMPARISON: None. FINDINGS: Bones: No fractures or dislocations. Minimal DJD of the STT joint noted and narrowing of the radiocarpal joint present. Soft tissues: No suspicious soft tissue calcifications. IMPRESSION: Minimal DJD at the STT joint and narrowing of the radiocarpal joint Dictated by: Erwin Samayoa M.D. on 05/19/2023 at 12:23 Approved by: Erwin Samayoa M.D. on 05/19/2023 at 12:37
== END ==
PROVIDERS: PCP Family Medicine; Referring Provider Family Medicine; Visit Provider Family Medicine
DX: M25.541 Pain in joints of right hand (principal); M25.542 Pain in joints of left hand
CPT/HCPCS: 73130

== ENCOUNTER → 2023-10-02 09:13 | Outpatient (CLI) | payer OTHER, SELFPAY ==
[2022-11-06 11:44] VITALS: BMI 31.7
[2023-10-02 09:32] LABS: Add Manual Diff / Slide Review NO; Basophils Absolute Auto 100 /uL (0-100); Basophils Percent Auto 0.9 % (0-2); Eosinophils Absolute Auto 100 /uL (0-450); Eosinophils Percent Auto 1.7 % (2-4); Hematocrit 40.8 % (36-46); Hemoglobin 13.6 g/dL (12.0-16.0); Lymphocytes Absolute Auto 1000 /uL (1100-4500); Lymphocytes Percent Auto 15.9 % (25-40); Mean Corpuscular HGB Conc 33.3 % (30-36); Mean Corpuscular Hemoglobin 29.9 PG (26-34); Mean Corpuscular Volume 89.9 fL (80-100); Monocytes Absolute Auto 600 /uL (0-900); Monocytes Percent Auto 10.3 % (3-14); Neutrophils Absolute Auto 4500 /uL (1500-7000); Neutrophils Percent Auto 71.2 % (50-75); Platelet Count 259 X10^3/uL (150-400); Red Blood Cell Count 4.54 X10^6/uL (4.0-5.2); Red Cell Distribution Width 13.3 % (11.6-14.8); White Blood Cell Count 6.3 X10^3/uL (4.5-11.0)
[2023-10-02 10:07] LABS: Alanine Aminotransferase 24 IU/L (<35); Albumin 4.5 g/dL (3.5-5.0); Albumin Globulin Ratio 1.7 (1.0-2.8); Alkaline Phosphatase 73 U/L (38-126); Aspartate Aminotransferase 27 IU/L (14-36); Bilirubin Total 0.8 mg/dL (0.2-1.3); Blood Urea Nitrogen 12 mg/dL (7-17); Calcium 10.6 mg/dL (8.4-10.2); Carbon Dioxide 35 mmol/L (22-32); Chloride 101 mmol/L (98-107); Cholesterol 145 mg/dL (140-199); Estimated Glomerular Filt Rate > 60 mL/min (>60); Globulin 2.7 g/dL (1.7-4.1); Glucose 100 mg/dL (80-110); HDL Cholesterol 59 mg/dL (40-60); HEMOLYSIS < 15 (0-50); LDL Cholesterol Calculated 71 mg/dL (<100); Potassium 3.6 mmol/L (3.4-5.1); Sodium 140 mmol/L (137-145); Total Protein 7.2 g/dL (6.3-8.2); Triglycerides 73 mg/dL (35-150)
[2023-10-02 10:26] LABS: Microalbumin Urine Random < 0.6 mg/dL (0-1.6)
== END ==
PROVIDERS: PCP Family Medicine; Referring Provider Family Medicine; Visit Provider Family Medicine
DX: I10 Essential (primary) hypertension (principal)
CPT/HCPCS: 80053; 80061; 82043; 82570; 85025

== ENCOUNTER 2024-02-19 10:08 | Emergency (ER) | payer OTHER, SELFPAY ==
[2024-01-21 09:37] VITALS: BMI 31.7
[2024-02-19] VITALS (14 sets, daily range): BP systolic 109–140; BP diastolic 65–75; PULSE 60–87; RESP 11–22; TEMP 37.1; O2SAT 95–99; BMI 30.9
--- NOTE | 2024-02-19 10:19 | EKG_ITS ---
[address] [id number] [address] [address] Test Date: 2024-02-19 Pat Name: vEa Lee Department: Room: Gender: Female Pit Clerk: YESSENIA : 1965 Requested By: Order Number: [id number] Reading MD: Juan Reyes MD Measurements Intervals [place] Rate: 62 P: 19 OK: 160 QRS: -9 QRSD: 78 T: 26 QT: 428 QTc: 434 Interpretive Statements Normal sinus rhythm Electronically Signed On 02-19-2024 11:29:46 PST by Juan Reyes MD
--- NOTE | 2024-02-19 10:27 | ED.GENADULT ---
HPI - General Adult General Chief complaint: Dizziness Stated complaint: vertigo, nausea Time Seen by Provider: 02/19/24 10:13 Source: patient Mode of arrival: Wheelchair History of Present Illness HPI narrative: Patient is a 58-year-old female. Has a history of labyrinthitis. Has baseline tinnitus. States this morning the tinnitus in her left ear got worse. She was having a slight headache. And she now has vertigo. She was not had vertigo in the past when she had her labyrinthitis. She states that the symptoms are worse when she stands up and when she turns her head to the left. She reports no sinus congestion. No sore throat. No chest pain. No palpitations. She has baseline numbness and tingling in her extremities due to spinal stenosis and states this is not worse. No trauma. Not on anticoagulation. Related Data Home Medications Medication Instructions Recorded Confirmed calcium carbonate (Calcium 600) 1,200 mg PO DAILY Breast Cancer 10/23/22 01/27/24 cholecalciferol (vitamin D3) 50 2,000 unit PO DAILY Breast Cancer 10/23/22 01/27/24 mcg (2,000 unit) capsule (Vitamin D3) Previous Rx's Medication Instructions Recorded anastrozole 1 mg tablet 1 mg PO DAILY breast cancer #90 05/18/22 tabs atorvastatin 10 mg tablet 10 mg PO BEDTIME #90 tabs 02/17/23 valacyclovir 1 gram tablet 1,000 mg PO PRN PRN Outbreak #14 08/02/23 tabs cyclobenzaprine 10 mg tablet 10 mg PO TID PRN muscle spasm #90 10/08/23 tabs fluoxetine 20 mg capsule 20 mg PO BID #180 caps 10/11/23 metoprolol succinate 25 mg 25 mg PO DAILY #90 tabs 10/11/23 tablet,extended release 24 hr hydrochlorothiazide 25 mg tablet See Rx Instructions .Route 02/15/24 .COMPLEX #90 tabs diazepam 2 mg tablet (Valium) 2 mg PO BID PRN dizziness #10 tabs 02/19/24 meclizine 25 mg tablet 25 mg PO TID PRN dizziness #20 tabs 02/19/24 ondansetron 4 mg disintegrating 4 mg PO Q6H PRN nausea and 02/19/24 tablet vomiting #10 tabs Allergies Allergy/AdvReac Type Severity Reaction Status Date / Time No Known Drug Allergies Allergy Verified 01/27/24 15:24 Review of Systems Review of Systems ROS Unobtainable: All systems reviewed & are unremarkable except as noted in HPI and below Patient History Medical History Failed back surgical syndrome Encounter for weight loss counseling Fatigue Keratosis, inflamed seborrheic Skin texture changes Arthralgia of both hands History of COVID-19 (04/2021) Osteopenia Labial cyst Ductal carcinoma in situ of right breast Chronic low back pain with left-sided sciatica Hx of migraine headaches Hyperthyroidism Graves' disease Arthritis Depression Anxiety MINOR on CPAP HTN (hypertension) HLD (hyperlipidemia) Diverticulitis Anesthesia Hearing impaired Mild sleep apnea Breast cancer, right breast Depression with anxiety Essential hypertension (03/19/16) History of Graves' disease Hyperlipidemia Surgical History Hx of colonoscopy (2021) Hx of colonoscopy with polypectomy (~2010) History of surgery (02/17/22) Status post right breast lumpectomy (01/06/22) Status post breast reduction (2013) History of lumpectomy (1997) Status post tubal ligation (1999) Family History Brother Age: 63 Bipolar 1 disorder Schizophrenia Mother Age: 88 Hypertension Sister Age: 62 Bipolar 1 disorder Social History household members: spouse Smoking Status: Former smoker Tobacco: How many years used: 34 second hand exposure: No alcohol intake: current substance use type: does not use Smoking Status: Former smoker alcohol intake frequency: a few times a week Substance Use Type: marijuana Exam Initial Vital Signs Initial Vital Signs: Vital Signs Temperature 98.7 F 02/19/24 10:14 Pulse Rate 69 02/19/24 10:14 Respiratory Rate 18 02/19/24 10:14 Blood Pressure 138/75 02/19/24 10:14 Pulse Oximetry 99 02/19/24 10:14 Oxygen Delivery Method Room Air 02/19/24 10:14 Const General: cooperative, comfortable and No ill appearing HENMT Head: normal to inspection and normocephalic Ears: other (Right tympanic membrane bulging without erythema left tympanic membrane unr) Eyes Pupils: PERRL Resp Effort & Inspection: normal respiratory effort Cardio Rate: regular rate Rhythm: regular rhythm Skin General: no rashes or lesions noted Neuro General: patient alert, patient awake, patient oriented x3, gait normal and moves all extremities Cranial Nerves: CN's II-XI intact bilaterally Cognition: normal cognition Speech: speech normal Motor: muscle tone normal throughout Sensory Exam: no sensory deficits noted Extrem General: normal to inspection Scores GCS [place] coma scale eye opening: Spontaneous [place] coma scale verbal response: Orientated [place] coma scale motor response: Obey commands [place] coma scale total score: 15 Course Orders Ordered: ED Orders 02/19/24 10:19 EKG-12 Lead Stat 02/19/24 10:41 Complete Blood Count AUTO DIFF Stat Comprehensive Metabolic Panel Stat Troponin I Stat 02/19/24 10:49 CT head/brain wo con Stat 02/19/24 12:10 Urine Culture Stat Urine Microscopic Stat Discontinued Medications Diazepam (Diazepam 10 Mg/2 Ml Syringe) 2 mg IV NOW ONE Stop: 02/19/24 12:39 Last Admin: 02/19/24 12:49 Dose: 2 mg Documented By: JEAN-PIERRE Meclizine HCl (Meclizine Hcl 12.5 Mg Tablet) 25 mg PO NOW ONE Stop: 02/19/24 10:50 Last Admin: 02/19/24 10:54 Dose: 25 mg Documented By: Vital Signs Vital signs: Vital Signs - 8 hr 02/19/24 10:14 02/19/24 10:17 02/19/24 10:18 Temperature 98.7 F Pulse Rate 69 72 Respiratory Rate 18 14 Blood Pressure 138/75 138/75 Pulse Oximetry 99 99 Oxygen Delivery Method Room Air 02/19/24 10:18 02/19/24 10:30 02/19/24 10:30 Temperature Pulse Rate 71 65 Respiratory Rate 18 16 Blood Pressure 122/73 Pulse Oximetry 99 98 Oxygen Delivery Method 02/19/24 11:01 02/19/24 11:03 02/19/24 11:03 Temperature Pulse Rate 60 66 Respiratory Rate 21 Blood Pressure 109/72 Pulse Oximetry 98 98 Oxygen Delivery Method Room Air 02/19/24 11:30 02/19/24 11:30 02/19/24 12:04 Temperature Pulse Rate 68 87 Respiratory Rate 13 19 Blood Pressure 117/69 Pulse Oximetry 96 95 Oxygen Delivery Method 02/19/24 12:05 02/19/24 12:05 Temperature Pulse Rate 65 Respiratory Rate 14 Blood Pressure 140/65 Pulse Oximetry 99 Oxygen Delivery Method Medical Decision Making Lab Data Lab results reviewed: Yes I reviewed the patient's lab results. 02/19/24 10:41 02/19/24 10:41 Labs: Lab Results 02/19/24 02/19/24 Range/Units 10:41 12:10 WBC 5.1 (4.5-11.0) X10^3/uL RBC 4.45 (4.0-5.2) X10^6/uL Hgb 13.3 (12.0-16.0) g/dL Hct 39.6 (36-46) % MCV 89.1 (80-100) fL MCH 29.8 (26-34) PG MCHC 33.5 (30-36) % RDW 13.2 (11.6-14.8) % Plt Count 263 (150-400) X10^3/uL Neut % (Auto) 62.5 (50-75) % Lymph % (Auto) 25.6 (25-40) % [place] % (Auto) 9.3 (3-14) % Eos % (Auto) 1.8 L (2-4) % Baso % (Auto) 0.8 (0-2) % Neut # (Auto) 3200 (3343-2374) /uL Lymph # (Auto) 1300 (8808-1339) /uL [place] # (Auto) 500 (0-900) /uL Eos # (Auto) 100 (0-450) /uL Baso # (Auto) 0 (0-100) /uL Sodium 140 (137-145) mmol/L Potassium 3.6 (3.4-5.1) mmol/L Chloride 107 (98-107) mmol/L Carbon Dioxide 25 (22-32) mmol/L BUN 14 (7-17) mg/dL Creatinine 0.65 (0.52-1.04) mg/dL Estimated GFR > 60 (>60) mL/min BUN/Creatinine Ratio 21.5 (6-22) Glucose 100 (80-110) mg/dL Calcium 10.3 H (8.4-10.2) mg/dL Total Bilirubin 0.9 (0.2-1.3) mg/dL AST 29 (14-36) IU/L ALT 26 (<35) IU/L Alkaline Phosphatase 90 (38-126) U/L Troponin I < 0.012 (0.01-0.034) ng/mL Total Protein 7.2 (6.3-8.2) g/dL Albumin 4.3 (3.5-5.0) g/dL Globulin 2.9 (1.7-4.1) g/dL Albumin/Globulin Ratio 1.5 (1.0-2.8) Urine RBC 0-1/hpf (0-5/HPF) Urine WBC 1-5/hpf (0-5/HPF) Ur Squamous Epith Cells 0-1 /hpf (0-5/HPF) Urine Bacteria Few (2-10) H (None) Vol Urine Centrifuged 10ml (spun) Urine Dip Bedside Urine Glucose Negative Bedside Urine Bilirubin - Negative Bedside Urine Ketone - Negative Urine Specific [place] 1.005 Bedside Urine Occult Blood + Bedside Urine pH 7.5 Bedside Urine Protein - Negative Bedside Urine Urobilinogen - Negative Bedside Urine Nitrite - Negative Bedside Urine Leukocytes +/- 15 Esterase Point of care testing: Urine Dip Bedside Urine Glucose Negative Bedside Urine Bilirubin - Negative Bedside Urine Ketone - Negative Urine Specific [place] 1.005 Bedside Urine Occult Blood + Bedside Urine pH 7.5 Bedside Urine Protein - Negative Bedside Urine Urobilinogen - Negative Bedside Urine Nitrite - Negative Bedside Urine Leukocytes +/- [address] scan - head: Radiologist's Impression: PROCEDURE: CT HEAD/BRAIN WO CON INDICATIONS: Vertigo with headache TECHNIQUE: Noncontrast 4.5 mm thick angled axial sections acquired from the foramen magnum to the vertex, with coronal and sagittal reformats. For radiation dose reduction, the following was used: automated exposure control, adjustment of mA and/or kV according to patient size. COMPARISON: None. FINDINGS: Image quality: Diagnostic. CSF spaces: Basal cisterns are patent. No extra-axial fluid collections. Ventricles are normal in size and shape. Brain: No midline shift. No intracranial masses or hemorrhage. Elizondo-white matter interface is normal. Skull and face: Calvarium and visualized facial bones are intact, without suspicious lesions. Sinuses: Complete opacification the right maxillary sinus osseous wall IMPRESSION: Unremarkable CT brain without intracranial hemorrhage or mass effect. Chronic right maxillary sinusitis ECG Data Attestation: I personally reviewed and interpreted this ECG as follows: Interpretation: Sinus rhythm Ventricular rate is 62 Normal axis Normal QRS Normal QTC No ST T wave changes MDM Narrative Medical decision making narrative: Has some improvement but not much after the meclizine. She reports a vast improvement of the symptoms after the Valium. Her head CT is unremarkable. I do suspect that this is a peripheral vertigo. It is positional. Sudden onset. Ringing in her ears. I have low suspicion for CVA. She has a history of labyrinthitis in the past. She was no other new neurologic symptoms. Will discharge patient home with oral medications to take as needed/ directed. I do recommend that she follows up with her primary doctor and also ENT. She was given return precautions. She expressed understanding and agreement. Discharge Plan Departure Patient Disposition: Home Clinical Impression: Vertigo Instructions: DI for Vertigo Activity Restrictions/Additional Instructions: Take the medication as needed and as directed. Recommend you contact your primary doctor for follow-up. I do feel that you would benefit from a follow-up with ENT/ear nose and throat as well. Return to the emergency department for new or worsening symptoms. Prescriptions: New ondansetron 4 mg tablet,disintegrating 4 mg PO Q6H PRN (Reason: nausea and vomiting) Qty: 10 0RF meclizine 25 mg tablet 25 mg PO TID PRN (Reason: dizziness) Qty: 20 0RF diazepam [Valium] 2 mg tablet 2 mg PO BID PRN (Reason: dizziness) Qty: 10 0RF No Action atorvastatin 10 mg tablet 10 mg PO BEDTIME Qty: 90 3RF valacyclovir 1 gram tablet 1,000 mg PO PRN PRN (Reason: Outbreak) Qty: 14 0RF fluoxetine 20 mg capsule 20 mg PO BID Qty: 180 3RF metoprolol succinate 25 mg tablet extended release 24 hr 25 mg PO DAILY Qty: 90 3RF Patient Comments: Takes at bedtime Rx Instructions: TAKE 1 TABLET BY MOUTH EVERY DAY FOR BLOOD PRESSURE hydrochlorothiazide 25 mg tablet See Rx Instructions .ROUTE .COMPLEX Qty: 90 1RF Dose Instruction: TAKE 1 TABLET BY MOUTH EVERY DAY Rx Instructions: TAKE 1 TABLET BY MOUTH EVERY DAY- cyclobenzaprine 10 mg tablet 10 mg PO TID PRN (Reason: muscle spasm) Qty: 90 3RF anastrozole 1 mg Tablet 1 mg PO DAILY Qty: 90 3RF calcium carbonate [Calcium 600] 600 mg calcium (1,500 mg) Tablet 1,200 mg PO DAILY cholecalciferol (vitamin D3) [Vitamin D3] 50 mcg (2,000 unit) Capsule 2,000 unit PO DAILY Referrals: Ralph Au MD [Physician] - Leon Giron DO [Primary Care Provider] - Stand Alone Forms: Patient Portal/API/Survey
[2024-02-19 10:47] LABS: Add Manual Diff / Slide Review NO; Basophils Absolute Auto 0 /uL (0-100); Basophils Percent Auto 0.8 % (0-2); Eosinophils Absolute Auto 100 /uL (0-450); Eosinophils Percent Auto 1.8 % (2-4); Hematocrit 39.6 % (36-46); Hemoglobin 13.3 g/dL (12.0-16.0); Lymphocytes Absolute Auto 1300 /uL (1100-4500); Lymphocytes Percent Auto 25.6 % (25-40); Mean Corpuscular HGB Conc 33.5 % (30-36); Mean Corpuscular Hemoglobin 29.8 PG (26-34); Mean Corpuscular Volume 89.1 fL (80-100); Monocytes Absolute Auto 500 /uL (0-900); Monocytes Percent Auto 9.3 % (3-14); Neutrophils Absolute Auto 3200 /uL (1500-7000); Neutrophils Percent Auto 62.5 % (50-75); Platelet Count 263 X10^3/uL (150-400); Red Blood Cell Count 4.45 X10^6/uL (4.0-5.2); Red Cell Distribution Width 13.2 % (11.6-14.8); White Blood Cell Count 5.1 X10^3/uL (4.5-11.0)
--- NOTE | 2024-02-19 10:49 | DI.CT.S_ITS ---
PROCEDURE: CT HEAD/BRAIN WO CON INDICATIONS: Vertigo with headache TECHNIQUE: Noncontrast 4.5 mm thick angled axial sections acquired from the foramen magnum to the vertex, with coronal and sagittal reformats. For radiation dose reduction, the following was used: automated exposure control, adjustment of mA and/or kV according to patient size. COMPARISON: None. FINDINGS: Image quality: Diagnostic. CSF spaces: Basal cisterns are patent. No extra-axial fluid collections. Ventricles are normal in size and shape. Brain: No midline shift. No intracranial masses or hemorrhage. Elizondo-white matter interface is normal. Skull and face: Calvarium and visualized facial bones are intact, without suspicious lesions. Sinuses: Complete opacification the right maxillary sinus osseous wall IMPRESSION: Unremarkable CT brain without intracranial hemorrhage or mass effect. Chronic right maxillary sinusitis Approved by: Ángel Stacy M.D. on 02/19/2024 at 10:14
[2024-02-19] MEDS: MECLIZINE HCL 12.5 MG TABLET 25 MG PO (10:54)
[2024-02-19 11:09] LABS: Alanine Aminotransferase 26 IU/L (<35); Albumin 4.3 g/dL (3.5-5.0); Albumin Globulin Ratio 1.5 (1.0-2.8); Alkaline Phosphatase 90 U/L (38-126); Aspartate Aminotransferase 29 IU/L (14-36); BUN Creatinine Ratio 21.5 (6-22); Bilirubin Total 0.9 mg/dL (0.2-1.3); Blood Urea Nitrogen 14 mg/dL (7-17); Calcium 10.3 mg/dL (8.4-10.2); Carbon Dioxide 25 mmol/L (22-32); Chloride 107 mmol/L (98-107); Estimated Glomerular Filt Rate > 60 mL/min (>60); Globulin 2.9 g/dL (1.7-4.1); Glucose 100 mg/dL (80-110); HEMOLYSIS 19 (0-50); Potassium 3.6 mmol/L (3.4-5.1); Sodium 140 mmol/L (137-145); Total Protein 7.2 g/dL (6.3-8.2)
[2024-02-19 11:21] LABS: Troponin I < 0.012 ng/mL (0.01-0.034)
[2024-02-19 12:38] LABS: Bacteria Urine Few (2-10); RBC Urine 0-1/HPF (0-5/HPF); Squamous Epithelial Cell Urine 0-1 /HPF (0-5/HPF); Urine Volume 10mL (spun); WBC Urine 1-5/HPF (0-5/HPF)
[2024-02-19] MEDS: diazePAM 10 MG/2 ML SYRINGE 2 MG IV (12:49)
== END 2024-02-19 14:02 | disposition home or self-care (01) ==
PROVIDERS: Emergency Provider Emergency Medicine; PCP Family Medicine
DX: R42 Dizziness and giddiness (principal); R51.9 Headache, unspecified
CPT/HCPCS: 70450; 80053; 81003; 81015; 84484; 85025; 87086; 93005; 93010; 96374; 99284; J3360

== ENCOUNTER 2024-05-11 12:09 | Outpatient (CLI) | payer OTHER, SELFPAY ==
[2024-01-21 09:37] VITALS: BMI 31.7
[2024-05-11] VITALS (10 sets, daily range): BP systolic 111–134; BP diastolic 64–88; PULSE 65–80; RESP 15–20; TEMP 36.6; O2SAT 96–100
--- NOTE | 2024-05-11 12:10 | DI.RAD.S_ITS ---
PROCEDURE: PAIN L INTERLAMINAR/CAUDAL INJ INDICATIONS: para left L4/5 TL YESI COMPARISON: None. FINDINGS/IMPRESSION: Fluoroscopic spot filming was performed to verify placement of spinal needles at the L4-L5 level(s), as labeled on the films. Appropriate location(s) of the needle tip(s) was confirmed by injection of iodinated contrast. Dictated by: Cody Noe M.D. on 05/11/2024 at 15:14 Approved by: Cody Noe M.D. on 05/11/2024 at 15:14
[2024-05-11] MEDS: MIDAZOLAM 2 MG/2 ML VIAL IV (13:16)
[2024-05-11] MEDS: BETAMETHASONE 30 MG/5 ML MDV 12 MG INJ (13:19)
[2024-05-11] MEDS: iopamidoL 15 ML VIAL 3 ML INJ (13:20)
[2024-05-11] MEDS: DEXAMETHASONE 10 MG/ML VIAL INJ (13:20)
[2024-05-11] MEDS: BUPIVACAINE 0.25% (PF) VIAL 2 ML INJ (13:20)
--- NOTE | 2024-05-11 13:32 | P.PCN_ITS ---
Date/Time/Diagnoses Date of procedure: 05/11/24 Time of procedure: 13:32 Pre-procedure diagnosis: 1. HNP WITH RADICULAR FEATURES, 2. MULTILEVEL CENTRAL STENOSIS, Post-procedure diagnosis: same Procedure Notes Procedure: 1. FLUOROSCOPICALLY GUIDED CONTRAST CONTROLLED INTERLAMINAR EPIDURAL STEROID INJECTION -L4/5 Indications: Eva is referred by Dr. Giron for treatment of Bilateral Foraminal Stenosis R>L LE symptoms. Physician: dR Muñoz Total Fluoroscopy time (seconds): 8 Total sedation minutes: 10 Complications: none Procedure in detail & Post-procedure care: FINDINGS Multilevel Central Spinal Stenosis with Nerve Root Compression DESCRIPTION OF PROCEDURE Fluoroscopically guided, contrast-controlled L4/5 translaminar epidural steroid injection. Following review of allergy and review of potential side effects and complications, including, but not necessarily limited to, infection, allergic reaction, local tissue breakdown, temporary as well as permanent nerve injury, paralysis, stroke and possible , the patient indicated that the patient understood and agreed to proceed. An informed consent document was signed by the patient, witnessed by a nurse, and placed in the patient's chart. Additionally, other treatment options including modalities, medications, and physical therapy were reviewed with the patient. After review of previous anaesthesic history and IV conscious sedation the patient was deemed safe to proceed with today?s procedure with IV conscious sedation as ASA class II designation. Safety time-out was performed to confirm patient ID, procedure to be performed and site of procedure. IV sedation was accomplished with a combination of 2mg of Versed was administered by the RN after DO order, titrated to patient comfort during the course of the procedure while the patient remained responsive to all verbal commands In the prone position, following sterile prep and drape of the lumbar region, the L4/5 translaminar space was identified fluoroscopically. The skin was anesthetized via a 25-gauge, 1.5inch needle with 1% lidocaine solution. At this point, a 22-gauge short bevel spinal needle was atraumatically introduced and ad vanced under fluoroscopic guidance into the region of the L4/5 translaminar space. Depth was confirmed on lateral view. Radiological data, including multiple fluoroscopic views of the lumbar spine, reveal a spinal needle at the L4/5 translaminar space. Lateral views then show placement of the needle in the epidural space. Subsequent views show contrast material flowing superiorly and inferiorly in the epidural space. No vascular or intrathecal uptake is observed. At this point, using loss of resistance technique with saline and air, the epidural space was entered. This was confirmed following negative aspiration with injection of approximately 1.5cc of Isovue 200, showing excellent epidural flow without vascular or intrathecal uptake. At this point, 1cc of 1% lidocaine solution combined with 2cc or 10mg of dexamethasone and 6mg betamethasone was injected without incident. The patient tolerated the procedure well without signs or symptoms of complications prior to transfer to the recovery area continued monitoring without incident. The patient was then transferred to the recovery area where they were observed for an appropriate period of time after the injection. The patient reported a VAS score of 7 prior to the procedure and a post- procedure VAS of 1. POST OP INSTRUCTIONS The patient was provided a Pain Log to continue to record their response to the target-specific procedure prior to follow-up visit with their referring physician. Additionally, specific post-injection care instructions and a contact number to our office were provided if concerns arise regarding possible complications associated with the procedure are suspected.
== END 2024-05-11 13:53 | disposition home or self-care (01) ==
LOC: RAD 12:09
PROVIDERS: PCP Family Medicine; Referring Provider Physical Medicine & Rehabilitation; Visit Provider Physical Medicine & Rehabilitation
DX: M51.16 Intervertebral disc disorders with radiculopathy, lumbar region (principal); M48.061 Spinal stenosis, lumbar region without neurogenic claudication
CPT/HCPCS: 62323; 99152; J0702; J1100; J2250; J3490

== ENCOUNTER → 2024-07-17 15:01 | Outpatient (CLI) | payer OTHER, SELFPAY ==
[2024-01-21 09:37] VITALS: BMI 31.7
--- NOTE | 2024-07-17 15:02 | DI.MRI.S_ITS ---
PROCEDURE: MR BRAIN (IAC) WWO CON INDICATIONS: Sensorineural hearing loss TECHNIQUE: Noncontrast sagittal T1 spin echo, axial FLAIR, axial gradient echo, axial diffusion and ADC through the brain. Axial thin-slice 3D CISS, coronal TruFISP, axial T1 spin echo with fat saturation through the internal auditory canals. After the administration of contrast, thin slice axial and coronal T1 spin echo with fat saturation through the internal auditory canals, and axial and coronal and sagittal T1 spin echo with fat saturation through the brain. COMPARISON: [facility], CT, CT HEAD/BRAIN WO CON, 02/19/2024, 10:56. FINDINGS: Image quality: Excellent. Cerebellopontine angles: No cerebellopontine angle masses. Inner ear structures appear normally formed. No suspicious enhancement in the internal auditory canal or along the course of the 7th cranial nerve. CSF spaces: Ventricles are normal in size and shape. No extra-axial fluid collections. Basal cisterns are patent. Brain: No intracranial bleeds or mass effects. Elizondo-white matter interface is intact. No abnormal intracranial enhancement. Diffusion weighted images demonstrate no acute ischemic insults. Brainstem appears normal. Normal intravascular flow voids are present. Skull and face: Calvarial marrow signal is normal. Orbits appear normal. Sinuses: Complete chronic opacification of the right maxillary sinus. Sinuses and mastoids are otherwise clear. IMPRESSION: No cause for patient's symptoms is identified. Normal appearance of the cerebellopontine angles and internal auditory canals. No acute intracranial abnormalities or abnormal intracranial enhancement. Dictated by: Willis Villagomez M.D. on 07/17/2024 at 16:50 Approved by: Willis Villagomez M.D. on 07/17/2024 at 16:55
== END ==
LOC: MRI 15:01
PROVIDERS: PCP Family Medicine; Referring Provider Otolaryngology; Visit Provider Otolaryngology
DX: H90.A31 Mixed conductive and sensorineural hearing loss, unilateral, right ear with restricted hearing on the contralateral side (principal)
CPT/HCPCS: 70553; A9579

== ENCOUNTER 2024-08-22 14:26 | Outpatient (CLI) | payer OTHER, SELFPAY ==
[2024-01-21 09:37] VITALS: BMI 31.7
[2024-08-22] VITALS (8 sets, daily range): BP systolic 120–134; BP diastolic 64–83; PULSE 73–85; RESP 16; TEMP 36.7; O2SAT 95–98
[2024-08-22] MEDS: MIDAZOLAM 2 MG/2 ML VIAL IV (15:35)
[2024-08-22] MEDS: BUPIVACAINE 0.25% (PF) VIAL 2 ML INJ (15:42)
[2024-08-22] MEDS: DEXAMETHASONE 10 MG/ML VIAL 20 MG INJ (15:42)
[2024-08-22] MEDS: iopamidoL 15 ML VIAL 3 ML INJ (15:43)
[2024-08-22] MEDS: BETAMETHASONE 30 MG/5 ML MDV 12 MG INJ (15:44)
[2024-08-22] MEDS: BETAMETHASONE 30 MG/5 ML MDV 6 MG INJ (15:45)
[2024-08-22] MEDS: LIDOCAINE 1% 20 ML INJ (15:45)
--- NOTE | 2024-08-22 15:56 | PM.PROC.IR.1 ---
Date/Time/Diagnoses Date of procedure: 08/22/24 Time of procedure: 15:57 Pre-procedure diagnosis: 1. FORAMINAL STENOSIS WITH LE SYMPTOMS Post-procedure diagnosis: same Procedure Notes Procedure: 1. FLUOROSCOPICALLY GUIDED CONTRAST CONTROLLED TRANSFORAMINAL EPIDURAL STEROID INJECTION - BILATERAL L3/4 TFESI Indications: Eva is referred by Dr. Giron for treatment of Foraminal Stenosis with bilateral LE Symptoms Physician: Rd Muñoz Total Fluoroscopy time (seconds): 16 Total sedation minutes: 16 Complications: none Procedure in detail & Post-procedure care: FINDINGS Foraminal Nerve Root Compression secondary to disc disease and facet hypertrophy DESCRIPTION OF PROCEDURE Following review of allergy and review of potential side effects and complications, including, but not necessarily limited to, infection, allergic reaction, local tissue breakdown, stroke, temporary or permanent nerve injury, paralysis, and possible , the patient indicated that the patient understood and agreed to proceed. An informed consent document was signed by the patient, witnessed by a nurse, and placed in the patient's chart. Additionally, other treatment options including medications, modalities, and physical therapy were reviewed with the patient. After review of previous anaesthesic history and IV conscious sedation the patient was deemed safe to proceed with today?s procedure with IV conscious sedation as ASA class II designation. Safety time-out was performed to confirm patient ID, procedure to be performed and site of procedure. IV sedation was accomplished with a combination of 2mg of Versed was administered by the RN after DO order, titrated to patient comfort during the course of the procedure while the patient remained responsive to all verbal commands In the prone position following sterile prep and drape of the lumbar region, the right L3/4 posterior neuroforamen was identified fluoroscopically. The skin was anesthetized via a 25-gauge 1.5-inch needle with 1% lidocaine solution. At this point, a 25-gauge 3.5-inch spinal needle was atraumatically introduced and advanced under fluoroscopic guidance through the posterior right L3/4 neuroforamen to approximately the anterior aspect of the canal. Depth was confirmed on lateral view. Following negative aspiration, injection of approximately 1.5cc of Isovue 200 under live fluoroscopy in the AP view confirmed excellent flow along the nerve root, into the epidural space without vascular or intrathecal uptake observed Radiological data, including multiple fluoroscopic views of the lumbosacral spine, reveal a spinal needle at the right L3/4 posterior neuroforamen. Subsequent views show flow of contrast material flowing superiorly and inferiorly along the nerve root confirming epidural flow. Subsequently, a test dose of 1.5cc of 1% lidocaine solution was administered and patient was observed for two minutes for signs or symptoms of complications, including abdominal pain, shortness of breath, bilateral upper or lower extremity weakness, nausea and vomiting, prior to steroid injection. At this point, a total of 2cc or 10mg of dexamethasone and 6mg betamethasone was injected without incident. Attention was then refocused to the left L3/4 level where the identical procedure was replicated. The procedure tolerated the procedure well without signs or symptoms of complications prior to transfer to the recovery area continued monitoring without incident. The patient was then transferred to the recovery area where they were observed for an appropriate time after the injection. The patient reported a VAS score of 7 prior to the procedure and a post-procedure VAS of 0. POST OP INSTRUCTIONS The patient was provided a Pain Log to continue to record their response to the target-specific procedure prior to follow-up visit with their referring physician. Additionally, specific post-injection care instructions and a contact number to our office were provided if concerns arise regarding possible complications associated with the procedure are suspected.
== END 2024-08-22 16:05 | disposition home or self-care (01) ==
PROVIDERS: PCP Family Medicine; Referring Provider Physical Medicine & Rehabilitation; Visit Provider Physical Medicine & Rehabilitation
DX: M51.16 Intervertebral disc disorders with radiculopathy, lumbar region (principal)
CPT/HCPCS: 64483; 99152; J0702; J1100; J2250; J3490